=== PATIENT | male | born 1985 | race Caucasian/White ===

== ENCOUNTER 2025-01-16 19:08 | Emergency (ER) | payer BC, SELFPAY ==
[2025-01-16] VITALS (32 sets, daily range): BP systolic 110–147; BP diastolic 61–91; PULSE 60–115; RESP 16–40; TEMP 36.1–37; O2SAT 100
--- NOTE | ~2025-01-16 | CT_ITS ---
CLINICAL INDICATION: Substance overdose COMPARISON: None. TECHNIQUE: Multiple contiguous axial images of the chest, abdomen and pelvis were performed without t he administration of intravenous contrast The dose-length product (DLP) was 1196.64 mGy-cm. Automated exposure control and iterative reconstruction technique were employed. FINDINGS/OBSERVATIONS: LUNG:Bibasilar atelectasis.The lungs are otherwise clear. MEDIASTINUM:Endotracheal tube and orogastric tubes are identified.Limited evaluation without intraven ous contrast. HEART: The heart is of normal size, without pericardial effusion. SOFT TISSUES OF THE CHEST: Unremarkable. Liver: The liver demonstrates homogeneous attenuation and is not enlarged. Gallbladder and biliary system: The gallbladder is only minimally distended, and otherwise unremarkable. Pancreas: Limited evaluation of the pancreas secondary to the lack of intravenous contrast. Spleen: The spleen demonstrates homogeneous attenuation and is not enlarged. Kidneys: The bilateral kidneys are unremarkable, without hydronephrosis or renal calculi. Adrenal glands: Unremarkable. Gastrointestinal tract: Fecal stasis within the colon. Appendix: The air-filled appendix is of normal caliber (axial series, images 165 through 187). Vasculature: Unremarkable. Lymph nodes: Limited evaluation without intravenous contrast. Pelvic structures: The bladder is decompressed with a Srivastava catheter, limiting its evaluation. The prostate gland is not enlarged. Body wall and musculoskeletal: Small fat-containing umbilical hernia. No significant degenerative disease within the lower thoracic or lumbosacral spine. IMPRESSION: Unremarkable CT examination of the chest, abdomen and pelvis, as detailed above. Reviewed, dictated and finalized at location A. IMPRESSION: Unremarkable CT examination of the chest, abdomen and pelvis, as detailed above .
--- NOTE | ~2025-01-16 | XR_ITS ---
CORRECTED REPORT corrected examination description to XR chest ET placement [facility] [place]18[place]25 This report was recreated on 01/18/25. Original report was CHEST RADIOGRAPH CLINICAL HISTORY: TUBE PLACEMENT . COMPARISON: None available TECHNIQUE: Single portable view of the chest. FINDINGS Endotracheal tube is identified with its tip projecting 2.7 cm above the base of the joselo. Orogastric tube extends into the left upper quadrant, presumably within the stomach. The remainder of the cardiomediastinal silhouette is otherwise unremarkable. The lungs are clear. IMPRESSION: No focal infiltrate or effusion. Endotracheal and orogastric tubes in good position. Reviewed, dictated and finalized at location A. MTDD
--- NOTE | ~2025-01-16 | CT_ITS ---
History: Substance overdose PROCEDURE: CT head without contrast. COMPARISON: None TECHNIQUE: Axial imaging of the head performed from the skull base to the vertex without IV contrast. Sagittal a nd coronal reformations obtained. DLP: 681 mGy-cm FINDINGS: The ventricles are normal in size, shape and position. There is no mass, mass effect or midline shift. There is no abnormal extra-axial fluid collection or intracranial hemorrhage. Visualized paranasal sinuses are clear. The mastoid air cells are well aerated. No acute displaced fractures within the overlying cranium. Impression: No acute intracranial hemorrhage or suspicious mass effect. Reviewed, dictated and finalized at location A. Impression: No acute intracranial hemorrhage or suspicious mass effect.
[2025-01-16] MEDS: HALOPERIDOL LACTATE 5 MG/ML VIAL IV PUSH (19:12)
--- NOTE | 2025-01-16 19:14 | ECG_ITS ---
Test Date: 2025-01-16 23:36:09 Measurements Intervals [place] Rate: 76 P: 33 CA: 155 QRS: 43 QRSD: 91 T: 37 QT: 423 QTc: 477 Interpretive Statements SINUS RHYTHM EARLY PRECORDIAL R/S TRANSITION BORDERLINE ECG No previous ECG available for comparison Electronically Signed On 01-17-2025 05:22:11 CDT by Jm Cedeno D.O.
[2025-01-16] MEDS: LACTATED RINGERS 1,000 ML 999 ML IV CONT ×2 (19:19→21:30)
[2025-01-16] MEDS: LORazepam INJ (*CRX) 2 MG/ML VIAL IV PUSH ×3 (19:19→20:33)
--- NOTE | 2025-01-16 19:19 | ED_ITS ---
HPI - Overdose General Chief Complaint: Overdose Stated Complaint: overdose Time Seen by Provider: 01/16/25 19:13 Source: patient Mode of arrival: ambulatory Limitations: no limitations History of Present Illness HPI Narrative: 39-year-old male with no known past medical history, was found in someone's yard, agitated and restless. Police was called who in turn called EMS. EMS brought this patient -- agitated and violently thrashing around -- patient was noted to be hemodynamically stable. Patient was sedated with Haldol and Ativan. He was placed on a 4 point restraint. No other history is available. Onset (ago): hour(s) ( 1 hour) Related Data Home Medications ?Medication ?Instructions ?Recorded ?Confirmed ?Last Taken ?Type Unable to Obtain Home Medications 01/16/25 01/16/25 Unknown History Allergies Allergy/AdvReac Type Severity Reaction Status Date / Time Unable to Assess Allergy Unverified 01/16/25 20:12 Review of Systems 2 Review of Systems: All systems reviewed & are unremarkable except as noted in HPI and below Exam 2 Narrative: blood pressure 135/82. Pulse of 86. Respirations 40. Temperature 37.2?. Oxygen saturation of 100% on room air. Const: Other: Patient was agitated and thrashing around. He was shouting and yelling. HENMT: Head: normal to inspection Ears: external ears normal F laura/Nose/Sinus: Normal external nose present Face and sinus: normal facial exam Mouth: Yes Normal oral and palatal mucosa present Eyes: Conjunctivae: conjunctivae normal Pupils: Equal, round and reactive pupils present ( Pupils are dilated and reactive to light.) EOM: EOMs intact bilaterally Neck: Neck: normal visual inspection, no lymphadenopathy and no meningeal signs Chest: Chest palpation & inspection: normal inspection of the chest Resp: Effort & Inspection: normal respiratory effort Auscultation: clear to auscultation bilaterally Cardio: Rate: regular rate Rhythm: regular rhythm GI: GI Palp: Yes Soft to palpation Auscultation: normal bowel sounds O ther: No tenderness/rigidity /rebound : General: Yes no CVA tenderness Back/Spine/Pelvis: Back: no CVA tenderness Skin: General skin exam: normal color Rashes: no rashes Wounds: no wounds Neuro: General: moves all extremities and no meningeal signs Speech: normal speech Extrem: General: normal to inspection and no clubbing, cyanosis or edema Psych: Affect: Anxious affect present Other: patient was agitated. He was violently thrashing around. Course Course Emergency Course: drug overdose Pupillary dilatation with agitation suggestive of a sympathomimetic overdose. violent and combative-- patient placed on physical and chemical restraint. Patient based on physical restraint with bilateral wrist and ankle restraints. in addition the patient required chemical restraints. Patient was placed on restraint on 7:15 p.m.. The patient received Haldol 5 mg and Ativan [address] of the head did not show any acute findings. patient re-evaluated at 7:30 p.m. Patient continues to be very agitated. Received Ativan 2 mg IV again. Patient is hemodynamically stable. ABG on 3.5 liters/minute is 750/25/160/90 8%. chest x-ray does not show any infiltrates evidence of CHF. The endotracheal tube and the OG tube are in good position. patient continues to be agitated in spite of Haldol 5 mg x 2 and Ativan 2 mg x 3. Patient has been intubated and placed on mechanical ventilation for airway protection Patient is sedated with IV propofol and intermittent fentanyl. Chest x-ray and CT of the chest did not show any acute findings. Did a [id number] has assessment to validate physical and chemical restraints Patient has borderline blood pressures. Will start the patient on IV phenylephrine as the patient will be requiring more propofol for sedation. Lactate of 6.3 urine tox is positive for amphetamine and cannabinoids White count of 9.2. Elevated Lactate. CT of the abdomen and pelvis/chest did not show any acute findings. repeated a [id number] evaluation in view of his restraints. Vital Signs Vital signs: Vital Signs Temperature 37.0 C 01/16/25 19:19 Pulse Rate 86 01/16/25 19:19 Respiratory Rate 40 H 01/16/25 19:19 Blood Pressure 135/82 01/16/25 19:19 Pulse Oximetry 100 01/16/25 19:19 Oxygen Delivery Room Air 01/16/25 19:19 Temperature 36.2 C L 01/16/25 22:37 Pulse Rate 65 01/16/25 22:37 Respiratory Rate 19 01/16/25 22:37 Blood Pressure 135/80 01/16/25 22:37 Pulse Oximetry 100 01/16/25 22:37 Oxygen Delivery Mechanical Ventilation 01/16/25 23:44 Procedures Intubation Intubation #1: Intubation Date: 01/16/25 Intubation Time: 21:33 sedative: Etomidate paralytic: Succinylcholine Laryngoscope: fiber optic video scope Tube Size (cm): 7.5 Method of Intubation: orotracheal Number of Attempts: 1 Tube Secured Depth (cm): 24 Tube Secured Location: teeth Tube Placement Confirmation: visualized tube passing through cords and confirmation by capnometry ( CO2 monitor) Patient Tolerated Procedure: well Intubation Complications: none MDM - Overdose MDM Narrative Medical decision making narrative: agitation amphetamine/marijuana abuse intubated and mechanically ventilated for airway contro Differential Diagnosis Differential diagnosis: Likely poisoning by opiate or related narcotic and drug overdose Lab Data Attestation: I reviewed the patient's lab results. 01/16/25 19:43 01/16/25 19:42 Labs: Lab Results 01/16/25 01/16/25 01/16/25 Range/Units 19:23 19:42 19:43 WBC 9.2 (4.8-10.8) K/mm3 RBC 4.18 L (4.70-6.10) M/mm3 Hgb 12.6 L (14.0-18.0) g/dL Hct 38.6 L (40.0-54.0) % MCV 92.3 (78.0-102.0) fL MCH 30.1 (27.0-31.0) pg MCHC 32.6 (32-36) g/dL RDW 11.9 (11.6-14.4) % Plt Count 208 (150-420) K/mm3 MPV 10.8 (8.7-11.0) fl Immature Gran % (Auto) 0.3 H (0.0-0.0) % Neut % (Auto) 64.4 (50.0-70.0) % Lymph % (Auto) 18.7 (18.0-42.0) % [place]ill % (Auto) 13.8 H (2.0-11.0) % Eos % (Auto) 2.5 (1.0-6.0) % Baso % (Auto) 0.3 (0.0-1.0) % Lymph # (Auto) 1.72 (1.10-4.50) K/mm3 Traill # (Auto) 1.27 H (0.10-0.90) K/mm3 Eos # (Auto) 0.23 (0.02-0.50) K/mm3 Baso # (Auto) 0.03 (0.00-0.10) K/mm3 Abs Immat Gran (auto) 0.03 H (0.00-0.00) K/mm3 Absolute Neuts (auto) 5.94 (1.70-7.20) K/mm3 Absolute Nucleated RBC 0.00 (0.00-0.00) K/mm3 Nucleated RBC % 0.0 (0-0.0) % PT 11.9 (9.50-12.1) Seconds INR 1.1 APTT 28.3 (23.9-30.70) Sec Minute Volume Vent Mode Tidal Volume ml PEEP cmH2O Peak Inspir Pressure Pressure Support Sodium 142 (136-145) mmol/L Potassium 4.1 (3.5-5.1) mmol/L Chloride 105 (98-108) mmol/L Carbon Dioxide 26 (21-32) mmol/L Anion Gap 11 (4-12) mmol/L BUN 20 H (7-18) mg/dL Creatinine 1.30 (0.70-1.30) mg/dL Estim Creat Clear Calc Not Reportable Estimated GFR > 60 (59 - ) Glucose 102 H (70-99) mg/dL POC Capillary Glucose 90 (65-105) mg/dl Calculated Osmolality 296 H (285-295) mOsm/kg Lactic Acid 6.3 H (0.4-2.0) mmol/L Calcium 9.2 (8.5-10.1) mg/dL Magnesium 1.8 (1.8-2.4) mg/dL Total Bilirubin 0.5 (0.00-1.00) mg/dL AST 19 (15-37) U/L ALT 19 (16-63) U/L Alkaline Phosphatase 66 (46-116) U/L Total Creatine Kinase (39-308) U/L Troponin I 7.3 (0.00-60.4) ng/L Total Protein 7.1 (6.4-8.2) g/dL Albumin 3.5 (3.4-5.0) g/dL Triglycerides 35 (0-150) mg/dL Lipase 82 H (16-77) U/L Procalcitonin Urine Color (Yellow) Urine Appearance (Clear) Urine pH (5.0-8.0) Ur Specific [place] (1.010-1.020) Urine Protein (Negative) Urine Glucose (UA) (Negative) Urine Ketones (Negative) Ur Blood (Man) (Negative) Urine Nitrate (Negative) Urine Bilirubin (Negative) Urine Urobilinogen (0.2-1.0) mg/dL Leukocyte Esterase Rfl (Negative) JEFRY/UL Salicylates 1.6 L (2.8-20.0) mg/dL Urine Opiates Screen (Negative) Urine Methadone Screen (Negative) Acetaminophen < 2 L (10-30) ug/mL Ur Barbiturates Screen (Negative) Ur Phencyclidine Scrn (Negative) Ur Amphetamine Screen (Negative) U Benzodiazepines Scrn (Negative) Urine Cocaine Screen (Negative) U Cannabinoids Screen (Negative) Ethyl Alcohol 3 (0-6) mg/dL 01/16/25 01/16/25 01/16/25 Range/Units 19:45 19:46 22:52 WBC (4.8-10.8) K/mm3 RBC (4.70-6.10) M/mm3 Hgb (14.0-18.0) g/dL Hct (40.0-54.0) % MCV (78.0-102.0) fL MCH (27.0-31.0) pg MCHC (32-36) g/dL RDW (11.6-14.4) % Plt Count (150-420) K/mm3 MPV (8.7-11.0) fl Immature Gran % (Auto) (0.0-0.0) % Neut % (Auto) (50.0-70.0) % Lymph % (Auto) (18.0-42.0) % Traill % (Auto) (2.0-11.0) % Eos % (Auto) (1.0-6.0) % Baso % (Auto) (0.0-1.0) % Lymph # (Auto) (1.10-4.50) K/mm3 [place] # (Auto) (0.10-0.90) K/mm3 Eos # (Auto) (0.02-0.50) K/mm3 Baso # (Auto) (0.00-0.10) K/mm3 Abs Immat Gran (auto) (0.00-0.00) K/mm3 Absolute Neuts (auto) (1.70-7.20) K/mm3 Absolute Nucleated RBC (0.00-0.00) K/mm3 Nucleated RBC % (0-0.0) % PT (9.50-12.1) Seconds INR APTT (23.9-30.70) Sec Minute Volume Vent Mode Tidal Volume ml PEEP cmH2O Peak Inspir Pressure Pressure Support Sodium (136-145) mmol/L Potassium (3.5-5.1) mmol/L Chloride (98-108) mmol/L Carbon Dioxide (21-32) mmol/L Anion Gap (4-12) mmol/L BUN (7-18) mg/dL Creatinine (0.70-1.30) mg/dL Estim Creat Clear Calc Estimated GFR (59 - ) Glucose (70-99) mg/dL POC Capillary Glucose (65-105) mg/dl Calculated Osmolality (285-295) mOsm/kg Lactic Acid 1.5 (0.4-2.0) mmol/L Calcium (8.5-10.1) mg/dL Magnesium (1.8-2.4) mg/dL Total Bilirubin (0.00-1.00) mg/dL AST (15-37) U/L ALT (16-63) U/L Alkaline Phosphatase (46-116) U/L Total Creatine Kinase 586 H (39-308) U/L Troponin I (0.00-60.4) ng/L Total Protein (6.4-8.2) g/dL Albumin (3.4-5.0) g/dL Triglycerides (0-150) mg/dL Lipase (16-77) U/L Procalcitonin Pending Urine Color Yellow (Yellow) Urine Appearance Clear (Clear) Urine pH 7.0 (5.0-8.0) Ur Specific [place] 1.020 (1.010-1.020) Urine Protein Negative (Negative) Urine Glucose (UA) Negative (Negative) Urine Ketones Negative (Negative) Ur Blood (Man) Negative (Negative) Urine Nitrate Negative (Negative) Urine Bilirubin Negative (Negative) Urine Urobilinogen 0.2 (0.2-1.0) mg/dL Leukocyte Esterase Rfl Negative (Negative) JEFRY/UL Salicylates (2.8-20.0) mg/dL Urine Opiates Screen Negative (Negative) Urine Methadone Screen Negative (Negative) Acetaminophen (10-30) ug/mL Ur Barbiturates Screen Negative (Negative) Ur Phencyclidine Scrn Negative (Negative) Ur Amphetamine Screen Positive A (Negative) U Benzodiazepines Scrn Negative (Negative) Urine Cocaine Screen Negative (Negative) U Cannabinoids Screen Positive A (Negative) Ethyl Alcohol (0-6) mg/dL 01/16/25 Range/Units 23:05 WBC (4.8-10.8) K/mm3 RBC (4.70-6.10) M/mm3 Hgb (14.0-18.0) g/dL Hct (40.0-54.0) % MCV (78.0-102.0) fL MCH (27.0-31.0) pg MCHC (32-36) g/dL RDW (11.6-14.4) % Plt Count (150-420) K/mm3 MPV (8.7-11.0) fl Immature Gran % (Auto) (0.0-0.0) % Neut % (Auto) (50.0-70.0) % Lymph % (Auto) (18.0-42.0) % [place] % (Auto) (2.0-11.0) % Eos % (Auto) (1.0-6.0) % Baso % (Auto) (0.0-1.0) % Lymph # (Auto) (1.10-4.50) K/mm3 [place] # (Auto) (0.10-0.90) K/mm3 Eos # (Auto) (0.02-0.50) K/mm3 Baso # (Auto) (0.00-0.10) K/mm3 Abs Immat Gran (auto) (0.00-0.00) K/mm3 Absolute Neuts (auto) (1.70-7.20) K/mm3 Absolute Nucleated RBC (0.00-0.00) K/mm3 Nucleated RBC % (0-0.0) % PT (9.50-12.1) Seconds INR APTT (23.9-30.70) Sec Minute Volume Not Reportable Vent Mode Not Reportable Tidal Volume 500 ml PEEP 5 cmH2O Peak Inspir Pressure Not Reportable Pressure Support Not Reportable Sodium (136-145) mmol/L Potassium (3.5-5.1) mmol/L Chloride (98-108) mmol/L Carbon Dioxide (21-32) mmol/L Anion Gap (4-12) mmol/L BUN (7-18) mg/dL Creatinine (0.70-1.30) mg/dL Estim Creat Clear Calc Estimated GFR (59 - ) Glucose (70-99) mg/dL POC Capillary Glucose (65-105) mg/dl Calculated Osmolality (285-295) mOsm/kg Lactic Acid (0.4-2.0) mmol/L Calcium (8.5-10.1) mg/dL Magnesium (1.8-2.4) mg/dL Total Bilirubin (0.00-1.00) mg/dL AST (15-37) U/L ALT (16-63) U/L Alkaline Phosphatase (46-116) U/L Total Creatine Kinase (39-308) U/L Troponin I (0.00-60.4) ng/L Total Protein (6.4-8.2) g/dL Albumin (3.4-5.0) g/dL Triglycerides (0-150) mg/dL Lipase (16-77) U/L Procalcitonin Urine Color (Yellow) Urine Appearance (Clear) Urine pH (5.0-8.0) Ur Specific [place] (1.010-1.020) Urine Protein (Negative) Urine Glucose (UA) (Negative) Urine Ketones (Negative) Ur Blood (Man) (Negative) Urine Nitrate (Negative) Urine Bilirubin (Negative) Urine Urobilinogen (0.2-1.0) mg/dL Leukocyte Esterase Rfl (Negative) JEFRY/UL Salicylates (2.8-20.0) mg/dL Urine Opiates Screen (Negative) Urine Methadone Screen (Negative) Acetaminophen (10-30) ug/mL Ur Barbiturates Screen (Negative) Ur Phencyclidine Scrn (Negative) Ur Amphetamine Screen (Negative) U Benzodiazepines Scrn (Negative) Urine Cocaine Screen (Negative) U Cannabinoids Screen (Negative) Ethyl Alcohol (0-6) mg/dL ABG Data ABG results: 01/16/25 01/16/25 19:42 23:05 Puncture Site Left radial Right radial ABG pH 7.53 H 7.40 ABG pCO2 25.1 L 37.2 ABG pO2 115.8 H 236.2 H ABG HCO3 20.5 L 22.6 L ABG O2 Saturation 98.2 H 99.1 H ABG Base Excess -0.7 L -1.7 L Oxyhemoglobin 97.4 98.5 O2 Delivery Device Nasal cannula Ventilator O2 Liters/Min 3.5 0.0 Vent Rate 16 ECG Data EKG #1: ECG completion date: 01/16/25 ECG completion time: 23:36 Interpretation: normal sinus rhythm. Normal axis. No ST -T-wave changes noted. Corrected QTC is 477 Critical Care Time Critical Care Time Critical Care Time: Yes Total Critical Care Time: 70 Discharge Plan Discharge Clinical Impression: Amphetamine abuse Drug overdose Qualifiers: Encounter type: initial encounter Injury intent: undetermined intent Qualified Code(s): T50.904A - Poisoning by unspecified drugs, medicaments and biological substances, undetermined, initial encounter Respiratory failure Qualifiers: Chronicity: acute Respiratory failure complication: unspecified whether with hypoxia or hypercapnia Qualified Code(s): J96.00 - Acute respiratory failure, unspecified whether with hypoxia or hypercapnia Patient Disposition: Still a Patient Condition: Stable Instructions: Antibiotic Form Additional Instructions: patient transferred to [facility] ICU. Patient has been accepted by Dr. Donald and Liz Patient Language: Italian Prescriptions: No Action Unable to Obtain Home Medications Follow-up/Referrals: Mike Roman MD [Primary Care Provider] - Time of Disposition: 00:28
[2025-01-16 19:27] LABS: Glucose Point of Care 90 mg/dl (65-105)
--- NOTE | 2025-01-16 19:30 | PC.NURSE ---
technical producer at bedside for patient safety. RN monitoring.
--- OUTSIDE RECORDS SUMMARY | 2025-01-16 19:36 | XMS_ITS | Encounter Summary ---
Author Organization [facility] Address [address] [place] [address] Care Team Providers Care Medical Claims Specialist Name Role Phone Toño Rosario Unavailable Quinn Katz MD Primary Care Provider [phone] None, Provider Primary Care Provider Unavaila ble Encounter Details Date Type Department Care Team (Late st Contact Info) Description 03/03/2019 Abstract SFL CONVERSION [address] [place] [address] , Generic ConversionMD Social History Tobacco Use Types Packs/Day Years Used Date Smoking Tobacco: Never Assessed Sex and Gender Information Value Date Recorded Sex Assigned at Not on file 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 Gender Identity Not on file Sexual Orientation Not on file documented as of this encounter Plan of Treatment Not on file documented as of this encounter Visit Diagnoses Not on filedocumented in this encounter Additional Health Concerns Infection Onset Date Last Indicated Resolved Time COVID-19 Rule Out 10/15/2021 10/15/2021 10/15/2021 8:53 PM REAL ESTATE OFFICE MANAGER COVID-19 Confirmed 10/15/2021 10/15/2021 12:32 AM REAL ESTATE OFFICE MANAGER documented as of this encounter Care Teams Medical Claims Specialist Relationship Specialty Start Date End Date Quinn Katz MD [address] [place] [id number] PCP - General FAMILY PRACTICE 07/08/20 10/02/21 None, ProviderMD PCP - General 10/03/21 Toño Rosario PA [address] [place] [address] PHYSICIAN GRADES 1 THROUGH 5 TEACHER 07/08/20 07/08/20 documented as of this encounter
--- OUTSIDE RECORDS SUMMARY | 2025-01-16 19:36 | XMS_ITS | Clinical Summary ---
Author Organization [facility] Address [address] [place] [address] Care Team Providers Care Nursing Consultant Name Role Phone None, Provider MD Primary Care Provider Unavaila ble Allergies Active Allergy Reactions Criticality Noted Date Comments Penicillins Anaphylaxis High 07/08/2020 Medications No known medications Active Problems No known active problems Social History Tobacco Use Types Packs/Day Years Used Date Smoking Tobacco: Every Day Cigarettes Smokeless Tobacco: Never Alcohol Use Standard Drinks/Week Comments Not Currently 0 (1 standard drink = 0.6 oz pur e alcohol) once a week Sex and Gender Information Value Date Recorded Sex Assigned at Not on file 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 Gender Identity Not on file Sexual Orientation Not on file Last Filed Vital Signs Vital Sign Reading Time Taken Comments Blood Pressure 151/99 02/11/2023 9:33 PM CDT Pulse 69 02/11/2023 9:33 PM CDT Temperature 36.6 C (97.8 F) 02/11/2023 9:33 PM CDT Respiratory Rate 20 02/11/2023 9:33 PM CDT Oxygen Saturation 100% 02/11/2023 9:33 PM CDT Inhaled Oxygen Concentration - - Weight 86.2 kg (190 lb) 02/11/2023 7:43 PM CDT Height 172.7 cm (5' 8 ) 02/11/2023 7:43 PM CDT Body Mass Index 28.89 02/11/2023 7:43 PM CDT Plan of Treatment Health Maintenance Due Date Last Done Comments Annual Physical 1986 DTaP, Tdap and Td Vaccines (6 - Tdap) 1994 06/09/1988, 11/28/1984, 01/17/1984, Additional history exists Hepatitis C 2001 Hepatitis B Vaccines (1 of 3 - 19+ 3-dose series) 2002 Pneumococcal Vaccine: Pediatrics (0 to 5 Years) and At-Risk Patients (6 to 49 Years) (1 of 2 - PCV) 2002 COVID-19 Vaccine ( - 2023- season) 2024 HPV Vaccines Aged Out No longer eligi ble based on patient's age to complete this topic Meningococcal B Vaccine Aged Out No l onger eligible based on patient's age to complete this topic Meningococcal Vaccine Aged Out No titus alpesh eligible based on patient's age to complete this topic RSV Immunizations Under 20 Months Aged Out No longer eligible based on patient's age to complete this topic Insurance Care Teams Nursing Consultant Relationship Specialty Start Date End Date None, Provider, PCP - General 10/03/21
[2025-01-16 19:44] LABS: Base Excess ABG -0.7 mmol/L (0-2); HCO3 ABG 20.5 mmol/L (23-29); Modified Allen's Test Pass; Oxygen Saturation ABG 98.2 % (95-97); Oxyhemoglobin 97.4 % (94-100); PCO2 ABG 25.1 mmHg (35-45); PO2 ABG 115.8 mmHg (80-90); Site Drawn LEFT RADIAL; pH ABG 7.53 (7.35-7.45)
[2025-01-16 19:45] LABS: Device NASAL CANNULA; Liters per Minute 3.5 LPM
[2025-01-16 19:45] LABS: Basophils Absolute Auto 0.03 K/mm3 (0.00-0.10); Basophils Percent Auto 0.3 % (0.0-1.0); Eosinophils Absolute Auto 0.23 K/mm3 (0.02-0.50); Eosinophils Percent Auto 2.5 % (1.0-6.0); Hematocrit 38.6 % (40.0-54.0); Hemoglobin 12.6 g/dL (14.0-18.0); Immature Granulocyte Absolute 0.03 K/mm3 (0.00-0.00); Immature Granulocyte Percent A 0.3 % (0.0-0.0); Lymphocytes Absolute Auto 1.72 K/mm3 (1.10-4.50); Lymphocytes Percent Auto 18.7 % (18.0-42.0); Mean Corpuscular HGB Conc 32.6 g/dL (32-36); Mean Corpuscular Hemoglobin 30.1 pg (27.0-31.0); Mean Corpuscular Volume 92.3 fL (78.0-102.0); Mean Platelet Volume 10.8 fl (8.7-11.0); Monocytes Absolute Auto 1.27 K/mm3 (0.10-0.90); Monocytes Percent Auto 13.8 % (2.0-11.0); Neutrophils Absolute Auto 5.94 K/mm3 (1.70-7.20); Neutrophils Percent Auto 64.4 % (50.0-70.0); Platelet Count Result 208 K/mm3 (150-420); Red Blood Count 4.18 M/mm3 (4.70-6.10); Red Cell Distribution Width 11.9 % (11.6-14.4); White Blood Count 9.2 K/mm3 (4.8-10.8)
[2025-01-16 19:51] LABS: Add Urine Microscopic? NO; Appearance Urine Clear (Clear); Bilirubin Urine Negative (Negative); Blood Urine Negative (Negative); Color Urine Yellow (Yellow); Glucose Urine UA Negative (Negative); Ketones Urine Negative (Negative); Leukocyte Esterase Ur Negative LEU/UL (Negative); Nitrate Urine Negative (Negative); Protein Urine Negative (Negative); Urobilinogen Urine 0.2 mg/dL (0.2-1.0)
[2025-01-16 19:57] LABS: Amphetamine Screen Urine Positive (Negative); Barbiturate Screen Urine Negative (Negative); Benzodiazepines Screen Urine Negative (Negative); Cannabinoid Screen Urine Positive (Negative); Cocaine Screen Urine Negative (Negative); Methadone Screen Urine Negative (Negative); Opiate Screen Urine Negative (Negative); Phencyclidine Screen Urine Negative (Negative)
[2025-01-16 19:59] LABS: INR 1.1; Partial Thromboplastin Time 28.3 Sec (23.9-30.70); Prothrombin Time 11.9 Seconds (9.50-12.1)
[2025-01-16 20:03] LABS: Lactic Acid Reflex 6.3 mmol/L (0.4-2.0)
[2025-01-16 20:07] LABS: Alanine Aminotransferase 19 U/L (16-63); Albumin Level 3.5 g/dL (3.4-5.0); Alkaline Phosphatase 66 U/L (46-116); Anion Gap 11 mmol/L (4-12); Aspartate Amino Transferase 19 U/L (15-37); Bilirubin,Total 0.5 mg/dL (0.00-1.00); Blood Urea Nitrogen 20 mg/dL (7-18); Calcium 9.2 mg/dL (8.5-10.1); Carbon Dioxide 26 mmol/L (21-32); Chloride 105 mmol/L (98-108); Estimated Glomerular Filt Rate > 60; Glucose 102 mg/dL (70-99); Osmolality Calculated 296 mOsm/kg (285-295); Potassium 4.1 mmol/L (3.5-5.1); Sodium 142 mmol/L (136-145); Total Protein 7.1 g/dL (6.4-8.2)
[2025-01-16 20:08] LABS: Acetaminophen < 2 ug/mL (10-30); Ethanol 3 mg/dL (0-6); Lipase 82 U/L (16-77); Magnesium 1.8 mg/dL (1.8-2.4); Salicylate 1.6 mg/dL (2.8-20.0); Troponin I 7.3 ng/L (0.00-60.4)
[2025-01-16] MEDS: ETOMIDATE 20 MG/10 ML AMPUL IV PUSH (21:09)
[2025-01-16] MEDS: SUCCINYLCHOLINE CHLORIDE 20 MG/ML 10 ML VIAL 100 MG IV PUSH (21:09)
[2025-01-16 21:15] LABS: Triglycerides 35 mg/dL (0-150)
[2025-01-16] MEDS: PROPOFOL IV EMULSION 100 ML 2.42 MG IV CONT (21:15)
--- NOTE | 2025-01-16 21:15 | PC.NURSE ---
2115 patient intubated and restraint changed from violent to non-violent as patient is at high risk of pulling at tubes/lines/drains.
[2025-01-16] MEDS: fentaNYL CITRATE INJ (*CRX) 100 MCG/2 ML VIAL IV PUSH ×2 (21:25→22:25)
--- NOTE | 2025-01-16 21:25 | PC.NURSE ---
Dr. Ambriz inserted 18 Fr sump OG tube. verification of placement via CXR post intubation.
[2025-01-16 21:42] LABS: Reflex Lactic Acid Yes or No Add Lactic
[2025-01-16] MEDS: PHENYLEPHRINE HCL INJ 50 MG in DEXTROSE 5% IN WATER 250 ML/245 ML BAG 12 ML IV CONT (21:55)
[2025-01-16] MEDS: fentaNYL CITRATE INJ (*CRX) 100 MCG/2 ML VIAL 50 MCG IV PUSH (22:58)
[2025-01-16] MEDS: MIDAZOLAM HCL (*CRX) 2 MG/2 ML VIAL IV PUSH (22:58)
[2025-01-16] MEDS: ROCURONIUM BROMIDE 50 MG/5 ML VIAL IV PUSH (23:00)
[2025-01-16 23:08] LABS: Base Excess ABG -1.7 mmol/L (0-2); Device VENTILATOR; HCO3 ABG 22.6 mmol/L (23-29); Modified Allen's Test Pass; Oxygen Saturation ABG 99.1 % (95-97); Oxyhemoglobin 98.5 % (94-100); PCO2 ABG 37.2 mmHg (35-45); PO2 ABG 236.2 mmHg (80-90); Site Drawn RIGHT RADIAL
[2025-01-16 23:09] LABS: Arterial Blood Gas PEEP 5 cmH2O; Arterial Blood Gas Tidal Volume 500 ml; Arterial Blood Gas Ventilator rate 16 /MIN
[2025-01-16 23:11] LABS: Creatine Kinase 586 U/L (39-308)
[2025-01-16 23:15] LABS: Lactic Acid 1.5 mmol/L (0.4-2.0)
--- NOTE | 2025-01-16 23:29 | PC.NURSE ---
patient returned from imaging.
[2025-01-17] VITALS (26 sets, daily range): BP systolic 109–148; BP diastolic 63–92; PULSE 44–83; RESP 16–20; TEMP 35.9–36.2; O2SAT 100
[2025-01-17] MEDS: Please add drug allergy info to patient profile. 1 EACH XX (00:02)
[2025-01-17 00:42] LABS: Glucose Point of Care 92 mg/dl (65-105)
[2025-01-17] MEDS: SODIUM CHLORIDE 0.9% IV 1,000 ML 999 ML IV CONT (01:08)
[2025-01-17] MEDS: DOPamine 400 MG/D5W 250 ML 400 MG/250 ML BAG 7.57 MG IV CONT (01:16)
[2025-01-17] MEDS: PROPOFOL IV EMULSION 100 ML 19.37 MG IV CONT (02:15)
[2025-01-17 11:59] LABS: Procalcitonin 0.1 ng/mL
== END 2025-01-17 02:15 ==
PROVIDERS: Emergency Provider Internal Medicine Critical Care Medicine; PCP Internal Medicine
DX: F15.10 Other stimulant abuse, uncomplicated (principal); T50.904A Poisoning by unspecified drugs, medicaments and biological substances, undetermined, initial encounter; J96.00 Acute respiratory failure, unspecified whether with hypoxia or hypercapnia
CPT/HCPCS: 36415; 36600; 70450; 71045; 71250; 74176; 80053; 80143; 80179; 80307; 81003; 82077; 82550; 82805; 82948; 83605; 83690; 83735; 84145; 84478; 84484; 85025; 85610; 85730; 93005; 96361; 96365; 96366; 96367; 96375; 96376; 99285; J0330; J1265; J1630; J2060; J2250; J2371; J2704; J3010; J7030; J7060; J7120

== ENCOUNTER 2025-01-17 03:57 | Inpatient (IN) | payer BC, SELFPAY ==
[2025-01-17] VITALS (42 sets, daily range): BP systolic 104–145; BP diastolic 58–82; PULSE 67–110; RESP 12–19; TEMP 34.9–38.8; O2SAT 93–99; BMI 26.9
--- NOTE | ~2025-01-17 | XR_ITS ---
EXAMINATION: XR chest 1V portable DATE: 01/19/2025 05:25 INDICATION: Respiratory failure TECHNIQUE: frontal view of the chest was obtained. COMPARISON: Chest radiograph dated 01/18/2025 FINDINGS: Opacities in the bilateral lower lung zones which could represent atelectasis or pneumonia. No pulmon aaliyah edema, pleural effusion or pneumothorax. The cardiomediastinal silhouette is normal. IMPRESSION: 1. Opacities in the bilateral lower lung zones which could represent atelectasis or pneumonia. Reviewed, dictated and finalized at location A. IMPRESSION: 1. Opacities in the bilateral lower lung zones which could represent atelectasi s or pneumonia.
--- NOTE | ~2025-01-17 | XR_ITS ---
Portable chest x-ray Comparison: 01/16/2025 Clinical History: Intubation Findings: Endotracheal tube and NG tube are in satisfactory positions. Lungs are clear. Cardiomedia stinal silhouette is stable. Bones and soft tissues are unremarkable. Impression: Clear lungs. Support tubes, as above. Reviewed, dictated and finalized at location . Impression: Clear lungs. Support tubes, as above.
--- NOTE | ~2025-01-17 | XR_ITS ---
Portable chest x-ray Comparison: 01/17/2025 Clinical History: Intubation Findings: Endotracheal tube and NG tube are in satisfactory positions. There is mild central congest theodore change with possible minimal bibasilar pulmonary edema. Cardiomediastinal silhouette is stable. Bones and soft tissues are unremarkable. Impression: Mild central congestive change with possible minimal bibasilar pulmonary edema. Support tubes, as above. Reviewed, dictated and finalized at location . Impression: Mild central congestive change with possible minimal bibasilar pulmonary edema. Support tubes, as above.
[2025-01-17] MEDS: PROPOFOL IV EMULSION 100 ML 19.85 MG IV CONT (02:55)
--- OUTSIDE RECORDS SUMMARY | 2025-01-17 03:16 | XMS_ITS | Encounter Summary ---
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 Gender Identity Not on file Sexual Orientation Not on file documented as of this encounter Plan of Treatment Not on file documented as of this encounter Visit Diagnoses Not on filedocumented in this encounter Additional Health Concerns Infection Onset Date Last Indicated Resolved Time COVID-19 Rule Out 10/15/2021 10/15/2021 10/15/2021 8:53 PM CERAMIC MOLD DESIGNER COVID-19 Confirmed 10/15/2021 10/15/2021 12:32 AM CERAMIC MOLD DESIGNER documented as of this encounter Care Teams Sampler Pickup Relationship Specialty Start Date End Date Quinn Katz MD [address] [place] [id number] PCP - General FAMILY PRACTICE 07/08/20 10/02/21 None, ProviderMD PCP - General 10/03/21 Toño Rosario PA [address] [place] [address] PHYSICIAN PERSONAL COMPUTER SPECIALIST 07/08/20 07/08/20 documented as of this encounter
--- OUTSIDE RECORDS SUMMARY | 2025-01-17 03:16 | XMS_ITS | Clinical Summary ---
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
--- NOTE | 2025-01-17 03:41 | PCRCNOTE ---
0300: Patient arrived to ICU-3 intubated with 7.5 ETT at 25 to teeth; sedated and ventilated; switched over to Kaplan C2, CMV, RR16, Vt500, +5, FiO2 titrated to 25% for SpO2:97%, vent limits/alarms set; ETAD replaced to reposition; ETT cuff occluded with 3 mL; advised patient was combative, soft restraints in place at this time.
--- OUTSIDE RECORDS SUMMARY | 2025-01-17 04:01 | XMS_ITS | Clinical Summary ---
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
--- OUTSIDE RECORDS SUMMARY | 2025-01-17 04:01 | XMS_ITS | Encounter Summary ---
Author Organization [facility] Address [address] [place] [address] Care Team Providers Care School Photographer Name Role Phone Toño Rosario Unavailable Quinn Katz MD Primary Care Provider [phone] None, Provider Primary Care Provider Unavaila ble Encounter Details Date Type Department Care Team (Late st Contact Info) Description 03/03/2019 Abstract SFL CONVERSION [address] [place] [address] , Generic ConversionMD Social History Tobacco Use Types Packs/Day Years Used Date Smoking Tobacco: Never Assessed Sex and Gender Information Value Date Recorded Sex Assigned at Not on file 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 Gender Identity Not on file Sexual Orientation Not on file documented as of this encounter Plan of Treatment Not on file documented as of this encounter Visit Diagnoses Not on filedocumented in this encounter Additional Health Concerns Infection Onset Date Last Indicated Resolved Time COVID-19 Rule Out 10/15/2021 10/15/2021 10/15/2021 8:53 PM DAY CARE HOME MOTHER COVID-19 Confirmed 10/15/2021 10/15/2021 12:32 AM DAY CARE HOME MOTHER documented as of this encounter Care Teams School Photographer Relationship Specialty Start Date End Date Quinn Katz MD [address] [place] [id number] PCP - General FAMILY PRACTICE 07/08/20 10/02/21 None, ProviderMD PCP - General 10/03/21 Toño Rosario PA [address] [place] [address] PHYSICIAN PAINT MIXER 07/08/20 07/08/20 documented as of this encounter
--- NOTE | 2025-01-17 04:16 | ADMGEN ---
This patient, Mihai Clifford, was admitted to Intensive Care Unit-3 on 01/17/25 at 0237. Patient/family oriented to hospital policies and general routines including ID bracelet, bed and alarms, visiting hours, pain management, procedures, bathroom and other care routines, personal items, smoking policy, room service/diet, and visiting hours. Information on how to activate the Rapid Response Team has been discussed. Patient/Family are encouraged to report perceived risks to care and to ask questions if they do not understand what they are told or what they should do.
[2025-01-17 04:58] LABS: Basophils Percent Auto 0.3 % (0.2-1.2); Eosinophils Absolute Auto 0.1 K/mm3 (0-0.3); Eosinophils Percent Auto 0.8 % (0-4.4); Hematocrit 37.6 % (42.0-52.0); Hemoglobin 12.5 g/dL (14.0-18.0); Immature Granulocyte Absolute 0.04 K/mm3 (0.00-0.031); Immature Granulocyte Percent A 0.4 % (0-0.5); Lymphocytes Absolute Auto 1.34 K/mm3 (0.9-3.2); Lymphocytes Percent Auto 14.1 % (18.3-44.2); Mean Corpuscular HGB Conc 33.2 g/dl (32-36); Mean Corpuscular Hemoglobin 30.5 pg (26-34); Mean Corpuscular Volume 91.7 fl (80-100); Mean Platelet Volume 11.2 fl (7.4-10.4); Monocytes Absolute Auto 1.3 K/mm3 (0.1-0.6); Monocytes Percent Auto 13.5 % (2.6-8.5); Neutrophils Absolute Auto 6.7 K/mm3 (1.3-6.7); Neutrophils Percent Auto 70.9 % (45.5-73.1); Platelet Count Result 175 k/mm3 (150-375); White Blood Count 9.5 K/mm3 (4.5-10.0)
--- NOTE | 2025-01-17 05:07 | P.HP_ITS ---
H&P: HPI History of Present Illness Date/Time: 01/17/25 05:07 Chief Complaint: Agitation Narrative: This is a 39-year-old male with unknown past medical history who was found on 01/16/2025 in someone's yd agitated and restless. EMS transferred the patient to [facility], patient was agitated and violently thrashing per report. Initially he was hemodynamically stable. He was given Haldol and Ativan and placed in 4 point restraints. He then received an additional dose of Ativan and for airway protection was then intubated and placed on mechanical ventilation. Fentanyl and propofol were started. Chest x-ray CT head and chest abdomen pelvis did not demonstrate any acute abnormalities. Lactic acid 6.3 and after large volume fluid resuscitation cleared. U tox positive for amphetamines and cannabinoids, reported to have dilated pupils. Shortly before transfer to [facility] ICU the patient became hypotensive and placed phenylephrine, then developed bradycardia with heart rate in 40s and was placed on dopamine. Review of Systems Review of Systems: ROS unobtainable: Yes unobtainable due to endotracheal tube, unobtainable due to medical condition and unobtainable due to mental status [facility] Social History Social History Substance use type: marijuana and amphetamines Meds Home Medications and Allergies Home Medications ?Medication ?Instructions ?Recorded ?Confirmed ?Type Unable to Obtain Home Medications 01/16/25 01/16/25 History Allergies Allergy/AdvReac Type Severity Reaction Status Date / Time Unable to Assess Allergy Unverified 01/16/25 20:12 Vital Signs Vital Signs - 24 hr 01/17/25 03:00 01/17/25 04:41 Pulse Rate 110 H 79 Pulse Oximetry 99 96 Oxygen Delivery Mechanical Ventilation Mechanical Ventilation Fraction of Inspired Oxygen 35 25 Exam Const: Other: Sedated HENMT: Mouth: Yes moist mucous membranes Eyes: Pupils: Equal, round and reactive pupils present Other: Pupils 3 mm equally Neck: Neck: supple Resp: Other: Mechanical breath sounds Cardio: Rate: regular rate Rhythm: regular rhythm GI: GI Palp: Yes Soft to palpation and No Tenderness to palpation present (GI) Extrem: General: no edema H&P: Results Labs Labs: Short CBC 01/17/25 Range/Units 04:28 WBC 9.5 (4.5-10.0) K/mm3 Hgb 12.5 L (14.0-18.0) g/dL Hct 37.6 L (42.0-52.0) % Plt Count 175 (150-375) k/mm3 Assessment and Plan Assessment and plan (1) Amphetamine abuse: Code(s): F15.10 - Other stimulant abuse, uncomplicated Status: Acute (2) Respiratory failure: Qualifiers: Chronicity: acute Respiratory failure complication: unspecified whether with hypoxia or hypercapnia Qualified Code(s): J96.00 - Acute respiratory failure, unspecified whether with hypoxia or hypercapnia Code(s): J96.90 - Respiratory failure, unspecified, unspecified whether with hypoxia or hypercapnia Status: Acute (3) Drug overdose: Qualifiers: Encounter type: initial encounter Injury intent: undetermined intent Qualified Code(s): T50.904A - Poisoning by unspecified drugs, medicaments and biological substances, undetermined, initial encounter Code(s): T50.901A - Poisoning by unspecified drugs, medicaments and biological substances, accidental (unintentional), initial encounter Status: Acute Plan This is a 39-year-old male with unknown past medical history who was found on 01/16/2025 in someone's yd agitated and restless. EMS transferred the patient to [facility], patient was agitated and violently thrashing per report. Initially he was hemodynamically stable. He was given Haldol and Ativan and placed in 4 point restraints. He then received an additional dose of Ativan and for airway protection was then intubated and placed on mechanical ventilation. Fentanyl and propofol were started. Chest x-ray CT head and chest abdomen pelvis did not demonstrate any acute abnormalities. Lactic acid 6.3 and after large volume fluid resuscitation cleared. U tox positive for amphetamines and cannabinoids, reported to have dilated pupils. Shortly before transfer to [facility] ICU the patient became hypotensive and placed phenylephrine, then developed bradycardia with heart rate in 40s and was placed on dopamine. ----- Initial blood work revealed hemoglobin 12.6, BUN 20, serum creatinine 1.30, acid 6.3 coming down to 1.5, serum glucose 106, total CK 586, lipase 82, ABG with a pH is 7.53 improving to 7.54 status post intubation. ----- Printing Manager consulted. Continue normal saline at 100 cc/hour. Care coordination consult placed. Patient remains intubated and sedated. Dopamine GTT discontinued. Currently in sinus rhythm and hemodynamically stable. ----- Full code. SCDs. Pepcid 20 mg IV b.i.d. Hospitalist [facility] Advance Care Plan I have confirmed that the patient's Advanced Care Plan is present, code status is documented, or surrogate decision maker is listed in patient medical record.: Yes Medication Reconciliation I have utilized all available resources to obtain, update and review the patients current medications (includes all prescriptions, OTC, herbals, cannabis, and nutritional supplements).: No The patient is not eligible for med reconciliation; the patient is in a emergent medical situation where delaying treatment would jeopardize the patients healt h.: Yes
[2025-01-17 05:15] LABS: Alanine Aminotransferase 26 U/L (6-50); Albumin Level 3.6 g/dL (3.5-5.1); Alkaline Phosphatase 51 U/L (38-126); Anion Gap 11 mmol/L (4-12); Aspartate Amino Transferase 52 U/L (17-59); Blood Urea Nitrogen 16 mg/dL (9-20); Carbon Dioxide 19 mmol/L (22-30); Chloride 107 mmol/L (98-107); Estimated CRCL calculation 123 ml/min; Estimated Glomerular Filt Rate > 60; Glucose 89 mg/dL (65-110); Magnesium 1.8 mg/dL (1.6-2.3); Phosphorus 2.4 mg/dL (2.5-4.5); Potassium 3.4 mmol/L (3.4-5.0); Sodium 137 mmol/L (137-145)
[2025-01-17 05:18] LABS: Triglycerides 53 mg/dL (<150)
[2025-01-17 05:27] LABS: Base Excess ABG -2.6 mEq/l (+/-2.0); Carboxyhemoglobin 0.2 % THb (0-2.0); Fractional Inspired Oxygen 25 %; HCO3 ABG 23.2 mEq/l (22.0-26.0); Methemoglobin ABG 0.1 %THb (0-1.5); Oxygen Content ABG 16.6 %vol (16.0-22.0); Oxygen Saturation ABG 97.5 % (95.0-100.0); PCO2 ABG 43.9 mmHg (35.0-45.0); PO2 ABG 104.1 mmHg (80.0-100.0); PO2 FiO2 Ratio Arterial Blood 4.16 %; Reduced Hemoglobin 2.7 %THb (0-5.0); Total Hemoglobin 12.1 g/dL (12.0-18.0)
[2025-01-17 05:29] LABS: Modified Allen's Test Pass; Site Drawn LEFT RADIAL
[2025-01-17 05:30] LABS: Arterial Blood Gas PEEP 5 cmH2O; Arterial Blood Gas Tidal Volume 450 ml; Arterial Blood Gas Vent Mode CMV; Arterial Blood Gas Ventilator rate 16 /MIN; Device VENTILATOR
[2025-01-17] MEDS: MIDAZOLAM 100MG/NS 100ML(*CRX) 100 MG/100 ML BAG IV CONT (05:33)
[2025-01-17] MEDS: SODIUM CHLORIDE 0.9% IV 1,000 ML 100 ML IV CONT (05:35)
[2025-01-17 06:37] LABS: Glucose Point of Care 79 mg/dl (65-105)
[2025-01-17] MEDS: PROPOFOL IV EMULSION 100 ML 14.89 MG IV CONT ×3 (07:06→20:40)
[2025-01-17 07:51] LABS: MRSA (PCR) NOT DETECTED (NOT DETECTE)
[2025-01-17] MEDS: MAGNESIUM SULF 1 GM/D5W 100 ML 1 GM/100 ML BAG IVPB (08:07)
[2025-01-17] MEDS: LACTATED RINGERS 1,000 ML 100 ML IV CONT ×2 (08:08→18:15)
[2025-01-17] MEDS: POTASSIUM/PHOSPHORUS/SODIUM 1.5 GM PACKET 1 PACKET FEED TUBE (08:08)
[2025-01-17] MEDS: MINERAL OIL/WHITE PETROLATUM OINTMENT 1 APPLIC EACH EYE ×2 (08:09→20:43)
[2025-01-17] MEDS: FAMOTIDINE 20 MG/2 ML VIAL IV PUSH ×2 (08:09→20:43)
[2025-01-17] MEDS: ENOXAPARIN 40 MG/0.4 ML SYRINGE SUB-Q (08:09)
--- NOTE | 2025-01-17 09:02 | P.CONIN_ITS ---
Assessment and Plan Assessment and plan (1) Acute respiratory failure: Code(s): J96.00 - Acute respiratory failure, unspecified whether with hypoxia or hypercapnia Status: Acute Assessment and Plan: Secondary to methamphetamine toxicity Chest x-ray and CT scan does not show any pneumonia ABG reviewed Ventilator adjusted to tidal volume 450 and rate of 18 Weaning will depend on mental status improvement (2) Drug overdose: Qualifiers: Encounter type: initial encounter Injury intent: undetermined intent Q ualified Code(s): T50.904A - Poisoning by unspecified drugs, medicaments and biological substances, undetermined, initial encounter Code(s): T50.901A - Poisoning by unspecified drugs, medicaments and biological substances, accidental (unintentional), initial encounter Status: Acute Assessment and Plan: UDS positive for amphetamine and cannabinoids. Head CT negative. Will allow 24 hours to drugs to wear off Will do sedation holiday (3) Amphetamine abuse: Code(s): F15.10 - Other stimulant abuse, uncomplicated Status: Acute Assessment and Plan: Currently sedated with propofol and Versed (4) Rhabdomyolysis: Code(s): M62.82 - Rhabdomyolysis Status: Acute Assessment and Plan: Continue IV fluids. Monitor CK level (5) Lactic acidosis: Code(s): E87.20 - Acidosis, unspecified Status: Acute Assessment and Plan: No evidence of sepsis at this time. Not on any antibiotics Lactic acidosis has resolved with fluids Monitor (6) Sinus bradycardia: Code(s): R00.1 - Bradycardia, unspecified Status: Acute Assessment and Plan: Likely secondary to propofol. Off dopamine. Now has resolved. Monitor (7) Electrolyte abnormality: Code(s): E87.8 - Other disorders of electrolyte and fluid balance, not elsewhere classified Status: Acute Assessment and Plan: Replace low potassium magnesium and phosphate Plan DVT prophylaxis -Lovenox Stress ulcer prophylaxis -Pepcid Nutrition -start Tube Feeds Code Status - Full Code Total Critical Care Time - 35 minutes Due to a high probability of clinically significant, life threatening deterioration, the patient required my highest level of preparedness to intervene emergently and I personally spent this critical care time directly and personally managing the patient. This critical care time included obtaining a history; examining the patient; pulse oximetry; ordering and review of studies; arranging urgent treatment with development of a management plan; evaluation of patient's response to treatment; frequent reassessment; and discussions with other providers. It was exclusive of separately billable procedures and treating other patients and teaching time. Please see Assessment and Plan section and the rest of the note for further information on patient assessment and treatment Supervisor Clam Bed Consult Note Consult date: 01/17/25 Reason for consult: Acute respiratory failure HPI: Mihai Clifford is a 39 year old white male with unknown past medical history who was found on 01/16/2025 in someone's yard agitated and restless. EMS transferred the patient to [facility] ER, patient was agitated and violently thrashing per report. Initially he was hemodynamically stable. He was given Haldol and Ativan and placed in 4 point restraints. He then received an additional dose of Ativan. He was then sedated and for airway protection was then intubated and placed on mechanical ventilation. Patient was started on propofol infusion and given IV fentanyl push. Patient was then given Versed. Workup in the ER showed normal WBC at 9.5. Electrolytes are normal except lactic acid of 6.3 Chest x-ray CT head and chest abdomen pelvis did not demonstrate any acute abnormalities. Patient was given IV fluid U tox positive for amphetamines and cannabinoids, reported to have dilated pupils at the time of presentation. Patient was then transferred to [facility] ICU. Patient was started on dopamine infusion due to bradycardia for likely from propofol. This morning when I evaluated the patient he is currently on propofol at 30 mics and Versed. He hemodynamically stable with sinus rhythm in 80s. He is on 25% FiO2. He is sedated and unable to provide any other meaningful history. No family at bedside. Review of Systems 2 Review of Systems: ROS unobtainable: Yes unobtainable due to endotracheal tube, unobtainable due to medical condition and unobtainable due to mental status [facility] Past Medical History Medical History (Updated 01/17/25 @ 09:07 by Sunil Donald MD) Drug abuse Social History Social History Substance use type: marijuana and amphetamines Comments Past family's surgical and medical history not obtainable Meds Home Medications and Allergies Home Medications ?Medication ?Instructions ?Recorded ?Confirmed ?Type Unable to Obtain Home Medications 01/16/25 01/16/25 History Allergies Allergy/AdvReac Type Severity Reaction Status Date / Time Unable to Assess Allergy Unverified 01/16/25 20:12 Vital Signs Vital Signs - 24 hr 01/17/25 02:55 01/17/25 03:00 01/17/25 03:02 Temperature Pulse Rate 80 110 H 67 Respiratory Rate 16 Blood Pressure Pulse Oximetry 99 Oxygen Delivery Mechanical Ventilation Fraction of Inspired Oxygen 35 01/17/25 04:41 01/17/25 05:33 01/17/25 05:50 Temperature Pulse Rate 79 84 Respiratory Rate 13 Blood Pressure Pulse Oximetry 96 Oxygen Delivery Mechanical Ventilation Mechanical Ventilation Fraction of Inspired Oxygen 25 25 01/17/25 06:00 01/17/25 07:06 01/17/25 07:06 Temperature Pulse Rate 72 84 84 Respiratory Rate 12 12 Blood Pressure Pulse Oximetry Oxygen Delivery Fraction of Inspired Oxygen 01/17/25 08:00 01/17/25 08:05 Temperature 36.8 C Pulse Rate 83 84 Respiratory Rate 13 Blood Pressure 104/64 Pulse Oximetry 96 96 Oxygen Delivery Mechanical Ventilation Fraction of Inspired Oxygen 25 Exam 2 Narrative: General: Pt is sedated, intubated and on mechanical ventilation Lungs/Chest: Trachea central Coarse BS B/L, No crackles or wheezing. Cardiac: RRR. Normal S1 S2. No murmurs Circulation: Pedal pulses are intact and symmetrical. Abdomen: Decreased bowel sounds. Obese. Soft. NT. ND. Extremities: No clubbing, cyanosis or edema. Warm : Srivastava in place Neurologic: Unable to assess due to sedation. PERRL Results Labs 01/17/25 04:28 01/17/25 04:28 Labs: Impressions Chest X-Ray 01/17/25 06:40 Impression: Clear lungs. Support tubes, as above. Short CBC 01/17/25 Range/Units 04:28 WBC 9.5 (4.5-10.0) K/mm3 Hgb 12.5 L (14.0-18.0) g/dL Hct 37.6 L (42.0-52.0) % Plt Count 175 (150-375) k/mm3 BMP 01/17/25 04:28 Sodium 137 Potassium 3.4 Chloride 107 Carbon Dioxide 19 L BUN 16 Creatinine 0.68 L Glucose 89 Calcium 8.0 L Liver Function 01/17/25 Range/Units 04:28 Total Bilirubin 1.0 (0.2-1.3) mg/dL AST 52 (17-59) U/L ALT 26 (6-50) U/L Alkaline Phosphatase 51 (38-126) U/L Albumin 3.6 (3.5-5.1) g/dL
--- NOTE | 2025-01-17 09:19 | PC.NURSE ---
[address] Donald - Dopamine drip discontinued. 0300 Patient arrived with Dopamine 2.5mcg/min infusing. Continued drip.
[2025-01-17] MEDS: MIDAZOLAM HCL (*CRX) 2 MG/2 ML VIAL 4 MG IV PUSH (10:48)
[2025-01-17 11:41] LABS: Glucose Point of Care 80 mg/dl (65-105)
--- NOTE | 2025-01-17 12:27 | PC.NURSE ---
At approximately 1000am, sedation turned down per MD orders. At approximately 1030am ventilator noted to be alarming. This RN walked into the room and noted the patient trying to sit up in bed, lifting arms (while in restraints) towards face. This RN tried to reorient patient and called for assistance as the patient became increasingly more combative when arms were held to side position. Patient sitting straight up in bed and unable to follow any directions. MD called to the bedside to assess the situation. Orders received to increase sedation at this time. Patient continued to fight and further orders received to give more sedation IVP (see eMAR). Medications given as ordered.
--- NOTE | 2025-01-17 13:19 | PC.NURSE ---
Updated patient's father over the phone on patient current status and plan of care while in the ICU. Patient's father states that his son has been using drugs for the past 5-6 years . States that he is big into meth and has used heroine as well, although meth is his drug of choice it seems . Furthermore states because of his lifestyle his relationship with the family is strained . This RN verbalized understanding.
[2025-01-17] MEDS: ACETAMINOPHEN ELIXIR 325 MG/10.15 ML UDC 650 MG PO (21:45)
[2025-01-18] VITALS (35 sets, daily range): BP systolic 101–154; BP diastolic 59–102; PULSE 76–103; RESP 12–23; TEMP 37.3–38.5; O2SAT 92–98
[2025-01-18 00:59] LABS: Glucose Point of Care 80 mg/dl (65-105)
[2025-01-18] MEDS: PROPOFOL IV EMULSION 100 ML 17.37 MG IV CONT (01:33)
[2025-01-18] MEDS: ACETAMINOPHEN ELIXIR 325 MG/10.15 ML UDC 650 MG PO ×3 (01:45→16:16)
[2025-01-18 04:14] LABS: Hematocrit 36.4 % (42.0-52.0); Hemoglobin 12.4 g/dL (14.0-18.0); Mean Corpuscular HGB Conc 34.1 g/dl (32-36); Mean Corpuscular Hemoglobin 30.7 pg (26-34); Mean Corpuscular Volume 90.1 fl (80-100); Mean Platelet Volume 10.7 fl (7.4-10.4); Platelet Count Result 167 k/mm3 (150-375); Red Blood Count 4.04 M/mm3 (4.6-6.20); Red Cell Distribution Width 12.1 % (11.5-14.5); White Blood Count 14.6 K/mm3 (4.5-10.0)
[2025-01-18 04:23] LABS: Alanine Aminotransferase 30 U/L (6-50); Alkaline Phosphatase 50 U/L (38-126); Anion Gap 4 mmol/L (4-12); Aspartate Amino Transferase 57 U/L (17-59); Blood Urea Nitrogen 12 mg/dL (9-20); Calcium 7.6 mg/dL (8.4-10.2); Carbon Dioxide 25 mmol/L (22-30); Chloride 104 mmol/L (98-107); Estimated CRCL calculation 121 ml/min; Estimated Glomerular Filt Rate > 60; Glucose 115 mg/dL (65-110); Magnesium 1.9 mg/dL (1.6-2.3); Potassium 3.1 mmol/L (3.4-5.0); Sodium 133 mmol/L (137-145)
[2025-01-18] MEDS: LACTATED RINGERS 1,000 ML 100 ML IV CONT (04:30)
[2025-01-18 05:13] LABS: Alveolar/Arterial O2 Gradient 63.4 mmHg; Base Excess ABG -1.4 mEq/l (+/-2.0); Carboxyhemoglobin 0.7 % THb (0-2.0); Fractional Inspired Oxygen 25 %; HCO3 ABG 22.6 mEq/l (22.0-26.0); Methemoglobin ABG 0.1 %THb (0-1.5); Oxygen Saturation ABG 94.9 % (95.0-100.0); Oxyhemoglobin 94.2 % THb (90.0-100.0); PCO2 ABG 35.9 mmHg (35.0-45.0); PO2 ABG 72.2 mmHg (80.0-100.0); PO2 FiO2 Ratio Arterial Blood 2.89 %; Total Hemoglobin 12.8 g/dL (12.0-18.0); pH ABG 7.417 (7.350-7.450)
[2025-01-18 05:14] LABS: Arterial Blood Gas PEEP 5 cmH2O; Arterial Blood Gas Tidal Volume 450 ml; Arterial Blood Gas Vent Mode CMV; Arterial Blood Gas Ventilator rate 18 /MIN; Device VENTILATOR; Modified Allen's Test Pass; Site Drawn LEFT RADIAL
[2025-01-18] MEDS: PROPOFOL IV EMULSION 100 ML 19.85 MG IV CONT (06:26)
[2025-01-18 06:33] LABS: Glucose Point of Care 101 mg/dl (65-105)
--- NOTE | 2025-01-18 07:32 | WPDINTPN ---
Progress Note: A&P Assessment and Plan (1) Acute respiratory failure: Code(s): J96.00 - Acute respiratory failure, unspecified whether with hypoxia or hypercapnia Status: Acute Assessment and Plan: Secondary to methamphetamine toxicity Chest x-ray and CT scan does not show any pneumonia at the time of presentation ABG and chest x-ray reviewed reviewed Plan for sedation holiday and weaning trial today (2) Drug overdose: Qualifiers: Encounter type: initial encounter Injury intent: undetermined intent Qualified Code(s): T50.904A - Poisoning by unspecified drugs, medicaments and biological substances, undetermined, initial encounter Code(s): T50.901A - Poisoning by unspecified drugs, medicaments and biological substances, accidental (unintentional), initial encounter Status: Inactive Assessment and Plan: UDS positive for amphetamine and cannabinoids. Head CT negative. Currently sedated Plan for sedation holiday and weaning trial today (3) Amphetamine abuse: Code(s): F15.10 - Other stimulant abuse, uncomplicated Status: Inactive Assessment and Plan: Currently sedated with propofol and Versed (4) Rhabdomyolysis: Code(s): M62.82 - Rhabdomyolysis Status: Acute Assessment and Plan: On IV fluids. Monitor CK level (5) Lactic acidosis: Code(s): E87.20 - Acidosis, unspecified Status: Acute Assessment and Plan: No evidence of sepsis at this time. Not on any antibiotics Lactic acidosis has resolved with fluids Monitor (6) Sinus bradycardia: Code(s): R00.1 - Bradycardia, unspecified Status: Acute Assessment and Plan: Likely secondary to propofol. Off dopamine. Now has resolved. Monitor (7) Electrolyte abnormality: Code(s): E87.8 - Other disorders of electrolyte and fluid balance, not elsewhere classified Status: Acute Assessment and Plan: Replace low potassium (8) Fever: Code(s): R50.9 - Fever, unspecified Status: Acute Assessment and Plan: Febrile overnight. With increased WBC count Imaging at the time of presentation was negative and WBC was normal ? Aspiration was atelectasis Check sputum and blood culture Repeat procalcitonin level Empiric Zosyn Plan DVT prophylaxis -Lovenox Stress ulcer prophylaxis -Pepcid Nutrition -on Tube Feeds Code Status - Full Code Total Critical Care Time - 30 minutes Due to a high probability of clinically significant, life threatening deterioration, the patient required my highest level of preparedness to intervene emergently and I personally spent this critical care time directly and personally managing the patient. This critical care time included obtaining a history; examining the patient; pulse oximetry; ordering and review of studies; arranging urgent treatment with development of a management plan; evaluation of patient's response to treatment; frequent reassessment; and discussions with other providers. It was exclusive of separately billable procedures and treating other patients and teaching time. Please see Assessment and Plan section and the rest of the note for further information on patient assessment and treatment Subjective Date/time seen: 01/18/25 Overnight events reviewed. febrile overnight Continues to be on mechanical ventilation 30% FiO2 Tolerating tube feeds Continues to be sedated with propofol and Versed Other Vitals acceptable Review of Systems Review of Systems: ROS unobtainable: Yes unobtainable due to endotracheal tube, unobtainable due to medical condition and unobtainable due to mental status Exam Narrative: General: Pt is sedated, intubated and on mechanical ventilation Lungs/Chest: Trachea central Coarse BS B/L, No crackles or wheezing. Cardiac: RRR. Normal S1 S2. No murmurs Circulation: Pedal pulses are intact and symmetrical. Abdomen: Decreased bowel sounds. Obese. Soft. NT. ND. Extremities: No clubbing, cyanosis or edema. Warm : Srivastava in place Neurologic: Unable to assess due to sedation. PERRL Objective Data Vital Signs Vital Signs: Vital Signs - 24 hr 01/17/25 08:00 01/17/25 08:00 01/17/25 08:00 Temperature 36.8 C Pulse Rate 83 84 84 Respiratory Rate 13 13 Blood Pressure 104/64 Pulse Oximetry 96 96 Oxygen Delivery Mechanical Ventilation Fraction of Inspired Oxygen 01/17/25 08:00 01/17/25 08:05 01/17/25 09:00 Temperature Pulse Rate 82 84 87 Respiratory Rate 18 18 Blood Pressure Pulse Oximetry 96 Oxygen Delivery Mechanical Ventilation Fraction of Inspired Oxygen 01/17/25 09:00 01/17/25 10:00 01/17/25 10:00 Temperature 36.8 C Pulse Rate 86 86 94 Respiratory Rate 18 18 Blood Pressure 118/74 Pulse Oximetry 96 Oxygen Delivery Fraction of Inspired Oxygen 01/17/25 10:06 01/17/25 10:43 01/17/25 10:54 Temperature Pulse Rate 87 92 95 Respiratory Rate 18 18 Blood Pressure Pulse Oximetry 96 Oxygen Delivery Mechanical Ventilation Fraction of Inspired Oxygen 25 01/17/25 11:00 01/17/25 11:01 01/17/25 12:00 Temperature 36.9 C Pulse Rate 92 96 92 Respiratory Rate 18 18 18 Blood Pressure 116/72 Pulse Oximetry 96 Oxygen Delivery Fraction of Inspired Oxygen 01/17/25 12:00 01/17/25 12:00 01/17/25 12:00 Temperature Pulse Rate 94 94 Respiratory Rate 18 Blood Pressure Pulse Oximetry 96 Oxygen Delivery Mechanical Ventilation Fraction of Inspired Oxygen 25 25 01/17/25 13:00 01/17/25 13:00 01/17/25 13:29 Temperature Pulse Rate 95 93 96 Respiratory Rate 18 18 Blood Pressure Pulse Oximetry 95 Oxygen Delivery Mechanical Ventilation Fraction of Inspired Oxygen 25 01/17/25 13:59 01/17/25 13:59 01/17/25 14:00 Temperature Pulse Rate 96 96 98 Respiratory Rate 18 18 Blood Pressure Pulse Oximetry Oxygen Delivery Fraction of Inspired Oxygen 01/17/25 14:00 01/17/25 15:00 01/17/25 16:00 Temperature 37.6 C H 37.9 C H Pulse Rate 98 98 98 Respiratory Rate 18 18 18 Blood Pressure 135/81 128/77 Pulse Oximetry 97 95 Oxygen Delivery Fraction of Inspired Oxygen 01/17/25 16:00 01/17/25 16:00 01/17/25 16:00 Temperature Pulse Rate 98 101 H Respiratory Rate 18 Blood Pressure Pulse Oximetry 95 Oxygen Delivery Mechanical Ventilation Fraction of Inspired Oxygen 25 25 01/17/25 16:00 01/17/25 16:48 01/17/25 17:00 Temperature Pulse Rate 96 101 H 101 H Respiratory Rate 18 18 Blood Pressure Pulse Oximetry 95 Oxygen Delivery Mechanical Ventilation Fraction of Inspired Oxygen 25 01/17/25 18:00 01/17/25 18:00 01/17/25 18:00 Temperature 38.2 C H Pulse Rate 101 H 101 H 101 H Respiratory Rate 18 18 Blood Pressure 128/73 Pulse Oximetry 94 Oxygen Delivery Fraction of Inspired Oxygen 01/17/25 19:50 01/17/25 20:00 01/17/25 20:00 Temperature Pulse Rate 103 H 96 96 Respiratory Rate 18 18 Blood Pressure Pulse Oximetry 94 Oxygen Delivery Mechanical Ventilation Fraction of Inspired Oxygen 25 01/17/25 20:00 01/17/25 20:00 01/17/25 20:00 Temperature 38.4 C H Pulse Rate 96 Respiratory Rate 18 Blood Pressure 145/82 H Pulse Oximetry 96 Oxygen Delivery Mechanical Ventilation Fraction of Inspired Oxygen 25 25 01/17/25 20:00 01/17/25 20:40 01/17/25 20:40 Temperature Pulse Rate 92 100 100 Respiratory Rate 18 18 Blood Pressure Pulse Oximetry Oxygen Delivery Fraction of Inspired Oxygen 01/17/25 21:45 01/17/25 22:00 01/17/25 22:00 Temperature 38.8 C H 38.8 C H Pulse Rate 100 100 Respiratory Rate 18 18 Blood Pressure 135/80 Pulse Oximetry 93 Oxygen Delivery Fraction of Inspired Oxygen 01/17/25 22:00 01/17/25 22:00 01/17/25 22:45 Temperature 38.8 C H Pulse Rate 100 100 Respiratory Rate 18 Blood Pressure Pulse Oximetry Oxygen Delivery Fraction of Inspired Oxygen 01/17/25 23:00 01/17/25 23:00 01/17/25 23:15 Temperature Pulse Rate 98 100 99 Respiratory Rate 19 18 Blood Pressure Pulse Oximetry 93 Oxygen Delivery Mechanical Ventilation Fraction of Inspired Oxygen 01/18/25 00:00 01/18/25 00:00 01/18/25 00:00 Temperature 38.3 C H Pulse Rate 94 Respiratory Rate 18 Blood Pressure 132/79 Pulse Oximetry 92 Oxygen Delivery Mechanical Ventilation Fraction of Inspired Oxygen 01/18/25 00:00 01/18/25 00:00 01/18/25 00:00 Temperature Pulse Rate 94 94 95 Respiratory Rate 18 18 Blood Pressure Pulse Oximetry Oxygen Delivery Fraction of Inspired Oxygen 01/18/25 01:33 01/18/25 01:33 01/18/25 01:45 Temperature 38.3 C H Pulse Rate 94 94 Respiratory Rate 18 18 Blood Pressure Pulse Oximetry Oxygen Delivery Fraction of Inspired Oxygen 01/18/25 02:00 01/18/25 02:00 01/18/25 02:00 Temperature 38.5 C H Pulse Rate 97 97 97 Respiratory Rate 20 20 20 Blood Pressure 151/82 H Pulse Oximetry 93 Oxygen Delivery Fraction of Inspired Oxygen 01/18/25 02:00 01/18/25 02:03 01/18/25 02:45 Temperature 38.4 C H Pulse Rate 97 95 Respiratory Rate Blood Pressure Pulse Oximetry 98 Oxygen Delivery Mechanical Ventilation Fraction of Inspired Oxygen 01/18/25 04:00 01/18/25 04:00 01/18/25 04:00 Temperature 38.3 C H Pulse Rate 99 99 Respiratory Rate 19 19 Blood Pressure 129/78 Pulse Oximetry 92 Oxygen Delivery Fraction of Inspired Oxygen 01/18/25 04:00 01/18/25 04:00 01/18/25 04:00 Temperature Pulse Rate 99 96 Respiratory Rate 19 Blood Pressure Pulse Oximetry Oxygen Delivery Mechanical Ventilation Fraction of Inspired Oxygen 01/18/25 04:30 01/18/25 04:45 01/18/25 05:20 Temperature Pulse Rate 93 94 94 Respiratory Rate 22 H 19 Blood Pressure Pulse Oximetry 93 Oxygen Delivery Mechanical Ventilation Fraction of Inspired Oxygen 01/18/25 05:30 01/18/25 05:50 01/18/25 06:00 Temperature 37.9 C H Pulse Rate 95 94 Respiratory Rate 19 Blood Pressure 132/82 Pulse Oximetry 96 94 Oxygen Delivery Mechanical Ventilation Fraction of Inspired Oxygen 01/18/25 06:00 01/18/25 06:00 01/18/25 06:00 Temperature Pulse Rate 95 95 95 Respiratory Rate 19 19 Blood Pressure Pulse Oximetry Oxygen Delivery Fraction of Inspired Oxygen 01/18/25 06:25 01/18/25 06:26 Temperature Pulse Rate 94 94 Respiratory Rate 18 18 Blood Pressure Pulse Oximetry Oxygen Delivery Fraction of Inspired Oxygen Intake/Output Intake/Output: Intake & Output 01/15/25 01/16/25 01/17/25 01/18/25 23:59 23:59 23:59 23:59 Intake Total 1316.6 1790.9 Output Total 1200 600 Balance 116.6 1190.9 Meds/Results Medications: Active Medications Generic Name Dose Route Start Last Admin Trade Name Freq PRN Reason Stop Dose Admin Acetaminophen 650 mg 01/17/25 21:29 01/18/25 01:45 Acetaminophen Elixir 325 Mg/10.15 Ml Udc PO 650 mg Q4H PRN Administration Mild Pain (1-3) or Fever Dextrose 12.5 gm 01/17/25 03:58 Dextrose 50% 25 Gm/50 Ml Syringe IV PUSH PRN PRN Hypoglycemia Protocol Enoxaparin Sodium 40 mg 01/17/25 09:00 01/17/25 08:09 Enoxaparin 40 Mg/0.4 Ml Syringe SUB-Q 40 mg DAILY RADHA Administration Famotidine 20 mg 01/17/25 09:00 01/17/25 20:43 Famotidine 20 Mg/2 Ml Vial IV PUSH 20 mg Q12HR RADHA Administration Glucose 15 gm 01/17/25 03:58 Glucose Oral Gel 15 Gm Of Glucse In 37.5 Gm Tube PO PRN PRN Hypoglycemia Protocol Dextrose 1,000 mls @ 100 mls/hr 01/17/25 03:58 Dextrose 5% 1,000 Ml IVPB PRN PRN Hypoglycemia Protocol Propofol 100 mls @ 17.367 mls/hr 01/17/25 04:55 01/18/25 06:26 Diprivan IV CONT 40 mcg/kg/min .Q5H46M RADHA 19.85 mls/hr Administration Protocol 35 MCG/KG/MIN Piperacillin/Tazobactam/Dextrose 3.375 gm in 50 mls @ 100 mls/hr 01/18/25 07:25 Zosyn 3.375 Gm/Ns 50 Ml IVPB Q6H RADHA Multi-Ingred Cream/Lotion/Oil/Oint 1 applic 01/17/25 09:00 01/17/25 20:43 Mineral Oil/White Petrolatum Ointment EACH EYE 1 applic Q12HR RADHA Administration Potassium Chloride 40 meq 01/18/25 07:26 Potassium Chloride 20 Meq Packet (For Liquid) FEED TUBE 01/18/25 07:27 ONCE ONE Potassium Chloride 40 meq 01/18/25 12:00 Potassium Chloride 20 Meq Er Tablet PO 01/18/25 12:01 ONCE ONE Radiology Results: ITS Impressions Chest X-Ray 01/18/25 06:11 Impression: Mild central congestive change with possible minimal bibasilar pulmonary edema. Support tubes, as above. Labs Labs: Laboratory Results - last 24 hr 01/17/25 01/17/25 01/18/25 06:27 11:26 00:46 WBC RBC Hgb Hct MCV MCH MCHC RDW Plt Count MPV Puncture Site ABG pH ABG pCO2 ABG pO2 ABG PO2/FiO2 Ratio ABG HCO3 ABG O2 Saturation ABG O2 Content ABG Base Excess A-a Gradient Oxyhemoglobin Carboxyhemoglobin Methemoglobin Reduced Hemoglobin Total Hemoglobin O2 Delivery Device O2 Liters/Min Minute Volume Vent Rate Vent Mode FiO2 Tidal Volume PEEP Peak Inspir Pressure Pressure Support Sodium Potassium Chloride Carbon Dioxide Anion Gap BUN Creatinine Estim Creat Clear Calc Estimated GFR Glucose POC Capillary Glucose 80 80 Calcium Magnesium Total Bilirubin AST ALT Alkaline Phosphatase Total Protein Albumin Nasal MRSA (PCR) Not detected 01/18/25 01/18/25 01/18/25 03:57 04:56 06:31 WBC 14.6 H RBC 4.04 L Hgb 12.4 L Hct 36.4 L MCV 90.1 MCH 30.7 MCHC 34.1 RDW 12.1 Plt Count 167 MPV 10.7 H Puncture Site Left radial ABG pH 7.417 ABG pCO2 35.9 ABG pO2 72.2 L ABG PO2/FiO2 Ratio 2.89 ABG HCO3 22.6 ABG O2 Saturation 94.9 L ABG O2 Content 17.0 ABG Base Excess -1.4 A-a Gradient 63.4 Oxyhemoglobin 94.2 Carboxyhemoglobin 0.7 Methemoglobin 0.1 Reduced Hemoglobin 5.0 Total Hemoglobin 12.8 O2 Delivery Device Ventilator O2 Liters/Min Not Reportable Minute Volume Not Reportable Vent Rate 18 Vent Mode Cmv FiO2 25 Tidal Volume 450 PEEP 5 Peak Inspir Pressure Not Reportable Pressure Support Not Reportable Sodium 133 L Potassium 3.1 L Chloride 104 Carbon Dioxide 25 Anion Gap 4 BUN 12 Creatinine 0.69 L Estim Creat Clear Calc 121 Estimated GFR > 60 Glucose 115 H POC Capillary Glucose 101 Calcium 7.6 L Magnesium 1.9 Total Bilirubin 1.0 AST 57 ALT 30 Alkaline Phosphatase 50 Total Protein 6.0 L Albumin 3.0 L Nasal MRSA (PCR)
[2025-01-18] MEDS: POTASSIUM CHLORIDE 20 MEQ PACKET (FOR LIQUID) 40 MEQ FEED TUBE (08:11)
[2025-01-18] MEDS: ENOXAPARIN 40 MG/0.4 ML SYRINGE SUB-Q (08:11)
[2025-01-18] MEDS: FAMOTIDINE 20 MG/2 ML VIAL IV PUSH ×2 (08:12→20:02)
[2025-01-18] MEDS: MINERAL OIL/WHITE PETROLATUM OINTMENT 1 APPLIC EACH EYE (08:14)
[2025-01-18] MEDS: PIPERACILLN/TAZ 3.375GM/NS50ML 3.375 GM/50 ML BAG IVPB ×3 (08:32→20:02)
[2025-01-18 09:12] LABS: Procalcitonin 0.1 ng/mL
--- NOTE | 2025-01-18 10:41 | PCNFU ---
Nutrition Follow-Up Complete: Suboptimal Energy Intake as related to mechanical vent as evidenced by tube feedings. goal: Meet estimated nutritional needs. Patient is progressing towards goal. We will continue current goal. Pt current nutrition is Clear liquid. Nutrition Recommendations: advance diet as tolerated per MD orders. Last recorded weight is 81.6 kg, down from 82.7 kg on admit. Bowel Motility: No BM reported. Labs Reviewed: PO4 2.4, Glu 115, ,K 3.1. Alb 3.0, Hct 36.4, Hgb 12.4 Meds Noted: Lovenox, Zosyn Skin: WNL Additional Notes: Patient has been extubated. Diet has been advanced to clear liquids, tolerating per nursing. Recommend advancing diet as tolerated per MD orders when medically able. Will monitor weight, labs, skin, diet orders, meds every 5 days.
[2025-01-18 11:10] LABS: Glucose Point of Care 92 mg/dl (65-105)
[2025-01-18] MEDS: POTASSIUM CHLORIDE 20 MEQ ER TABLET 40 MEQ PO (11:45)
--- NOTE | 2025-01-18 11:53 | P.PNIM_ITS ---
Progress Note: A&P Assessment and Plan (1) Acute respiratory failure: Code(s): J96.00 - Acute respiratory failure, unspecified whether with hypoxia or hypercapnia Status: Acute Assessment and Plan: Secondary to methamphetamine toxicity Chest x-ray and CT scan does not show any pneumonia at the time of presentation ABG and chest x-ray reviewed reviewed Plan for sedation holiday and weaning trial today (2) Drug overdose: Qualifiers: Encounter type: initial encounter Injury intent: undetermined intent Qualified Code(s): T50.904A - Poisoning by unspecified drugs, medicaments and biological substances, undetermined, initial encounter Code(s): T50.901A - Poisoning by unspecified drugs, medicaments and biological substances, accidental (unintentional), initial encounter Status: Inactive Assessment and Plan: UDS positive for amphetamine and cannabinoids. Head CT negative. Currently sedated Plan for sedation holiday and weaning trial today (3) Amphetamine abuse: Code(s): F15.10 - Other stimulant abuse, uncomplicated Status: Inactive Assessment and Plan: Currently sedated with propofol and Versed (4) Rhabdomyolysis: Code(s): M62.82 - Rhabdomyolysis Status: Acute Assessment and Plan: On IV fluids. Monitor CK level (5) Lactic acidosis: Code(s): E87.20 - Acidosis, unspecified Status: Acute Assessment and Plan: No evidence of sepsis at this time. Not on any antibiotics Lactic acidosis has resolved with fluids Monitor (6) Sinus bradycardia: Code(s): R00.1 - Bradycardia, unspecified Status: Acute Assessment and Plan: Likely secondary to propofol. Off dopamine. Now has resolved. Monitor (7) Electrolyte abnormality: Code(s): E87.8 - Other disorders of electrolyte and fluid balance, not elsewhere classified Status: Acute Assessment and Plan: Replace low potassium (8) Fever: Code(s): R50.9 - Fever, unspecified Status: Acute Assessment and Plan: Febrile overnight. With increased WBC count Imaging at the time of presentation was negative and WBC was normal ? Aspiration was atelectasis Check sputum and blood culture Repeat procalcitonin level Empiric Zosyn Subjective Date/time seen: 01/18/25 11:53 Interval history: Patient is extubated. Currently patient is currently on nasal cannula 2 L saturating around 94%. Patient was examined at the bedside along with his mother. As per mother patient currently not working more than a year. 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 Later patient was abusing drugs including methamphetamine and fentanyl. As per mother she got a call from the hospital and and does not know the events happened in [facility]. As per nursing patient was intubated in [facility] due to drug overdose. UDS positive for amphetamine and cannabinoids. Patient is started on Zosyn due to possible aspiration pneumonia. Review of Systems Review of Systems: ROS unobtainable: Yes unobtainable due to endotracheal tube, unobtainable due to medical condition and unobtainable due to mental status Exam Narrative: General: Pt is sedated, intubated and on mechanical ventilation Lungs/Chest: Trachea central Coarse BS B/L, No crackles or wheezing. Cardiac: RRR. Normal S1 S2. No murmurs Circulation: Pedal pulses are intact and symmetrical. Abdomen: Decreased bowel sounds. Obese. Soft. NT. ND. Extremities: No clubbing, cyanosis or edema. Warm : Srivastava in place Neurologic: Unable to assess due to sedation. PERRL Const: Other: Sedated HENMT: Mouth: Yes moist mucous membranes Eyes: Pupils: Equal, round and reactive pupils present Other: Pupils 3 mm equally Neck: Neck: supple Resp: Other: Mechanical breath sounds Cardio: Rate: regular rate Rhythm: regular rhythm Neuro: Cranial nerves: Yes Equal, round and reactive pupils present Extrem: General: no edema Objective Data Vital Signs Vital Signs: Vital Signs - 24 hr 01/17/25 12:00 01/17/25 12:00 01/17/25 12:00 Temperature 98.5 F Pulse Rate 92 94 94 Respiratory Rate 18 18 Blood Pressure 116/72 Pulse Oximetry 96 96 Oxygen Delivery Mechanical Ventilation Oxygen Flow Rate Fraction of Inspired Oxygen 01/17/25 12:00 01/17/25 13:00 01/17/25 13:00 Temperature Pulse Rate 95 93 Respiratory Rate 18 18 Blood Pressure Pulse Oximetry Oxygen Delivery Oxygen Flow Rate Fraction of Inspired Oxygen 01/17/25 13:29 01/17/25 13:59 01/17/25 13:59 Temperature Pulse Rate 96 96 96 Respiratory Rate 18 18 Blood Pressure Pulse Oximetry 95 Oxygen Delivery Mechanical Ventilation Oxygen Flow Rate Fraction of Inspired Oxygen 01/17/25 14:00 01/17/25 14:00 01/17/25 15:00 Temperature 99.7 F H Pulse Rate 98 98 98 Respiratory Rate 18 18 Blood Pressure 135/81 Pulse Oximetry 97 Oxygen Delivery Oxygen Flow Rate Fraction of Inspired Oxygen 01/17/25 16:00 01/17/25 16:00 01/17/25 16:00 Temperature 100.3 F H Pulse Rate 98 98 101 H Respiratory Rate 18 18 Blood Pressure 128/77 Pulse Oximetry 95 95 Oxygen Delivery Mechanical Ventilation Oxygen Flow Rate Fraction of Inspired Oxygen 25 01/17/25 16:00 01/17/25 16:00 01/17/25 16:48 Temperature Pulse Rate 96 101 H Respiratory Rate 18 Blood Pressure Pulse Oximetry 95 Oxygen Delivery Mechanical Ventilation Oxygen Flow Rate Fraction of Inspired Oxygen 25 25 01/17/25 17:00 01/17/25 18:00 01/17/25 18:00 Temperature 100.8 F H Pulse Rate 101 H 101 H 101 H Respiratory Rate 18 18 Blood Pressure 128/73 Pulse Oximetry 94 Oxygen Delivery Oxygen Flow Rate Fraction of Inspired Oxygen 01/17/25 18:00 01/17/25 19:50 01/17/25 20:00 Temperature Pulse Rate 101 H 103 H 96 Respiratory Rate 18 18 Blood Pressure Pulse Oximetry 94 Oxygen Delivery Mechanical Ventilation Oxygen Flow Rate Fraction of Inspired Oxygen 25 01/17/25 20:00 01/17/25 20:00 01/17/25 20:00 Temperature Pulse Rate 96 Respiratory Rate 18 Blood Pressure Pulse Oximetry Oxygen Delivery Mechanical Ventilation Oxygen Flow Rate Fraction of Inspired Oxygen 25 01/17/25 20:00 01/17/25 20:00 01/17/25 20:40 Temperature 101.2 F H Pulse Rate 96 92 100 Respiratory Rate 18 18 Blood Pressure 145/82 H Pulse Oximetry 96 Oxygen Delivery Oxygen Flow Rate Fraction of Inspired Oxygen 01/17/25 20:40 01/17/25 21:45 01/17/25 22:00 Temperature 101.9 F H 102 F H Pulse Rate 100 100 Respiratory Rate 18 18 Blood Pressure 135/80 Pulse Oximetry 93 Oxygen Delivery Oxygen Flow Rate Fraction of Inspired Oxygen 01/17/25 22:00 01/17/25 22:00 01/17/25 22:00 Temperature Pulse Rate 100 100 100 Respiratory Rate 18 18 Blood Pressure Pulse Oximetry Oxygen Delivery Oxygen Flow Rate Fraction of Inspired Oxygen 01/17/25 22:45 01/17/25 23:00 01/17/25 23:00 Temperature 101.9 F H Pulse Rate 98 100 Respiratory Rate 19 Blood Pressure Pulse Oximetry 93 Oxygen Delivery Mechanical Ventilation Oxygen Flow Rate Fraction of Inspired Oxygen 01/17/25 23:15 01/18/25 00:00 01/18/25 00:00 Temperature Pulse Rate 99 Respiratory Rate 18 Blood Pressure Pulse Oximetry Oxygen Delivery Mechanical Ventilation Oxygen Flow Rate Fraction of Inspired Oxygen 01/18/25 00:00 01/18/25 00:00 01/18/25 00:00 Temperature 100.9 F H Pulse Rate 94 94 94 Respiratory Rate 18 18 18 Blood Pressure 132/79 Pulse Oximetry 92 Oxygen Delivery Oxygen Flow Rate Fraction of Inspired Oxygen 01/18/25 00:00 01/18/25 01:33 01/18/25 01:33 Temperature Pulse Rate 95 94 94 Respiratory Rate 18 18 Blood Pressure Pulse Oximetry Oxygen Delivery Oxygen Flow Rate Fraction of Inspired Oxygen 01/18/25 01:45 01/18/25 02:00 01/18/25 02:00 Temperature 101.0 F H Pulse Rate 97 97 Respiratory Rate 20 20 Blood Pressure Pulse Oximetry Oxygen Delivery Oxygen Flow Rate Fraction of Inspired Oxygen 01/18/25 02:00 01/18/25 02:00 01/18/25 02:03 Temperature 101.3 F H Pulse Rate 97 97 95 Respiratory Rate 20 Blood Pressure 151/82 H Pulse Oximetry 93 98 Oxygen Delivery Mechanical Ventilation Oxygen Flow Rate Fraction of Inspired Oxygen 01/18/25 02:45 01/18/25 04:00 01/18/25 04:00 Temperature 101.2 F H 100.9 F H Pulse Rate 99 Respiratory Rate 19 Blood Pressure 129/78 Pulse Oximetry 92 Oxygen Delivery Oxygen Flow Rate Fraction of Inspired Oxygen 01/18/25 04:00 01/18/25 04:00 01/18/25 04:00 Temperature Pulse Rate 99 99 Respiratory Rate 19 19 Blood Pressure Pulse Oximetry Oxygen Delivery Mechanical Ventilation Oxygen Flow Rate Fraction of Inspired Oxygen 01/18/25 04:00 01/18/25 04:30 01/18/25 04:45 Temperature Pulse Rate 96 93 94 Respiratory Rate 22 H 19 Blood Pressure Pulse Oximetry Oxygen Delivery Oxygen Flow Rate Fraction of Inspired Oxygen 01/18/25 05:20 01/18/25 05:30 01/18/25 05:50 Temperature Pulse Rate 94 95 Respiratory Rate Blood Pressure Pulse Oximetry 93 96 Oxygen Delivery Mechanical Ventilation Mechanical Ventilation Oxygen Flow Rate Fraction of Inspired Oxygen 25 30 30 01/18/25 06:00 01/18/25 06:00 01/18/25 06:00 Temperature 100.2 F H Pulse Rate 94 95 95 Respiratory Rate 19 19 19 Blood Pressure 132/82 Pulse Oximetry 94 Oxygen Delivery Oxygen Flow Rate Fraction of Inspired Oxygen 01/18/25 06:00 01/18/25 06:25 01/18/25 06:26 Temperature Pulse Rate 95 94 94 Respiratory Rate 18 18 Blood Pressure Pulse Oximetry Oxygen Delivery Oxygen Flow Rate Fraction of Inspired Oxygen 01/18/25 07:45 01/18/25 07:52 01/18/25 08:00 Temperature 99.9 F H Pulse Rate 92 92 Respiratory Rate 18 18 Blood Pressure 134/81 Pulse Oximetry 94 Oxygen Delivery Mechanical Ventilation Oxygen Flow Rate Fraction of Inspired Oxygen 30 01/18/25 08:00 01/18/25 08:00 01/18/25 08:00 Temperature 100.0 F H Pulse Rate 97 91 Respiratory Rate 19 18 Blood Pressure 131/81 Pulse Oximetry 96 Oxygen Delivery Oxygen Flow Rate Fraction of Inspired Oxygen 30 01/18/25 08:00 01/18/25 08:11 01/18/25 08:29 Temperature 100.0 F H Pulse Rate 94 91 Respiratory Rate 19 Blood Pressure Pulse Oximetry Oxygen Delivery Oxygen Flow Rate Fraction of Inspired Oxygen 01/18/25 08:35 01/18/25 08:39 01/18/25 08:40 Temperature Pulse Rate 91 89 88 Respiratory Rate 21 H 19 Blood Pressure Pulse Oximetry 96 Oxygen Delivery Mechanical Ventilation Oxygen Flow Rate Fraction of Inspired Oxygen 30 01/18/25 08:45 01/18/25 09:00 01/18/25 09:32 Temperature 99.6 F Pulse Rate 84 Respiratory Rate 22 H Blood Pressure Pulse Oximetry 95 Oxygen Delivery Nasal Cannula Oxygen Flow Rate 2 Fraction of Inspired Oxygen 01/18/25 10:00 01/18/25 10:00 Temperature 99.7 F H Pulse Rate 102 H 87 Respiratory Rate 19 Blood Pressure 112/79 Pulse Oximetry 94 Oxygen Delivery Oxygen Flow Rate Fraction of Inspired Oxygen Intake/Output Intake/Output: Intake & Output 01/15/25 01/16/25 01/17/25 01/18/25 23:59 23:59 23:59 23:59 Intake Total 1316.6 2224.5 Output Total 1200 600 Balance 116.6 1624.5 Meds/Results Medications: Active Medications Generic Name Dose Route Start Last Admin Trade Name Freq PRN Reason Stop Dose Admin Acetaminophen 650 mg 01/17/25 21:29 01/18/25 08:11 Acetaminophen Elixir 325 Mg/10.15 Ml Udc PO 650 mg Q4H PRN Administration Mild Pain (1-3) or Fever Dextrose 12.5 gm 01/17/25 03:58 Dextrose 50% 25 Gm/50 Ml Syringe IV PUSH PRN PRN Hypoglycemia Protocol Enoxaparin Sodium 40 mg 01/17/25 09:00 01/18/25 08:11 Enoxaparin 40 Mg/0.4 Ml Syringe SUB-Q 40 mg DAILY RADHA Administration Famotidine 20 mg 01/17/25 09:00 01/18/25 08:12 Famotidine 20 Mg/2 Ml Vial IV PUSH 20 mg Q12HR RADHA Administration Glucose 15 gm 01/17/25 03:58 Glucose Oral Gel 15 Gm Of Glucse In 37.5 Gm Tube PO PRN PRN Hypoglycemia Protocol Dextrose 1,000 mls @ 100 mls/hr 01/17/25 03:58 Dextrose 5% 1,000 Ml IVPB PRN PRN Hypoglycemia Protocol Piperacillin/Tazobactam/Dextrose 3.375 gm in 50 mls @ 100 mls/hr 01/18/25 08:00 01/18/25 09:32 Zosyn 3.375 Gm/Ns 50 Ml IVPB Infused Q6H RADHA Infusion Multi-Ingred Cream/Lotion/Oil/Oint 1 applic 01/17/25 09:00 01/18/25 08:14 Mineral Oil/White Petrolatum Ointment EACH EYE 1 applic Q12HR RADHA Administration Potassium Chloride 40 meq 01/18/25 12:00 01/18/25 11:45 Potassium Chloride 20 Meq Er Tablet PO 01/18/25 12:01 40 meq ONCE ONE Administration Radiology Results: ITS Impressions Chest X-Ray 01/18/25 06:11 Impression: Mild central congestive change with possible minimal bibasilar pulmonary edema. Support tubes, as above. Labs Labs: Laboratory Results - last 24 hr 01/18/25 01/18/25 01/18/25 00:46 03:57 04:56 WBC 14.6 H RBC 4.04 L Hgb 12.4 L Hct 36.4 L MCV 90.1 MCH 30.7 MCHC 34.1 RDW 12.1 Plt Count 167 MPV 10.7 H Puncture Site Left radial ABG pH 7.417 ABG pCO2 35.9 ABG pO2 72.2 L ABG PO2/FiO2 Ratio 2.89 ABG HCO3 22.6 ABG O2 Saturation 94.9 L ABG O2 Content 17.0 ABG Base Excess -1.4 A-a Gradient 63.4 Oxyhemoglobin 94.2 Carboxyhemoglobin 0.7 Methemoglobin 0.1 Reduced Hemoglobin 5.0 Total Hemoglobin 12.8 O2 Delivery Device Ventilator O2 Liters/Min Not Reportable Minute Volume Not Reportable Vent Rate 18 Vent Mode Cmv FiO2 25 Tidal Volume 450 PEEP 5 Peak Inspir Pressure Not Reportable Pressure Support Not Reportable Sodium 133 L Potassium 3.1 L Chloride 104 Carbon Dioxide 25 Anion Gap 4 BUN 12 Creatinine 0.69 L Estim Creat Clear Calc 121 Estimated GFR > 60 Glucose 115 H POC Capillary Glucose 80 Calcium 7.6 L Magnesium 1.9 Total Bilirubin 1.0 AST 57 ALT 30 Alkaline Phosphatase 50 Total Protein 6.0 L Albumin 3.0 L Procalcitonin 01/18/25 01/18/25 01/18/25 06:31 07:55 11:08 WBC RBC Hgb Hct MCV MCH MCHC RDW Plt Count MPV Puncture Site ABG pH ABG pCO2 ABG pO2 ABG PO2/FiO2 Ratio ABG HCO3 ABG O2 Saturation ABG O2 Content ABG Base Excess A-a Gradient Oxyhemoglobin Carboxyhemoglobin Methemoglobin Reduced Hemoglobin Total Hemoglobin O2 Delivery Device O2 Liters/Min Minute Volume Vent Rate Vent Mode FiO2 Tidal Volume PEEP Peak Inspir Pressure Pressure Support Sodium Potassium Chloride Carbon Dioxide Anion Gap BUN Creatinine Estim Creat Clear Calc Estimated GFR Glucose POC Capillary Glucose 101 92 Calcium Magnesium Total Bilirubin AST ALT Alkaline Phosphatase Total Protein Albumin Procalcitonin 0.1 Hospitalist MIPS Advance Care Plan I have confirmed that the patient's Advanced Care Plan is present, code status is documented, or surrogate decision maker is listed in patient medical record.: Yes Medication Reconciliation I have utilized all available resources to obtain, update and review the patients current medications (includes all prescriptions, OTC, herbals, cannabis, and nutritional supplements).: Yes
[2025-01-18] MEDS: NICOTINE (*PBKC) 14 MG PATCH 1 PATCH TRANSDERM (15:25)
[2025-01-19] VITALS: BP 102/67; PULSE 85; PULSE 86; RESP 16; TEMP 37.2; O2SAT 96
[2025-01-19 02:00] VITALS: BP 115/94; PULSE 81; PULSE 90; RESP 16; TEMP 37.3; O2SAT 96
[2025-01-19] MEDS: PIPERACILLN/TAZ 3.375GM/NS50ML 3.375 GM/50 ML BAG IVPB (02:02)
[2025-01-19 04:00] VITALS: BP 123/70; PULSE 82; PULSE 93; RESP 22; TEMP 37.2; O2SAT 95; O2SAT 97
[2025-01-19] MEDS: ACETAMINOPHEN ELIXIR 325 MG/10.15 ML UDC 650 MG PO (04:17)
[2025-01-19 04:22] LABS: Hemoglobin 11.6 g/dL (14.0-18.0); Mean Corpuscular HGB Conc 33.1 g/dl (32-36); Mean Corpuscular Volume 90.4 fl (80-100); Mean Platelet Volume 11.4 fl (7.4-10.4); Platelet Count Result 180 k/mm3 (150-375); Red Blood Count 3.87 M/mm3 (4.6-6.20); Red Cell Distribution Width 12.2 % (11.5-14.5); White Blood Count 12.9 K/mm3 (4.5-10.0)
[2025-01-19 04:31] LABS: Alanine Aminotransferase 45 U/L (6-50); Albumin Level 3.2 g/dL (3.5-5.1); Alkaline Phosphatase 56 U/L (38-126); Anion Gap 6 mmol/L (4-12); Aspartate Amino Transferase 62 U/L (17-59); Bilirubin,Total 0.9 mg/dL (0.2-1.3); Blood Urea Nitrogen 7 mg/dL (9-20); Calcium 7.8 mg/dL (8.4-10.2); Carbon Dioxide 26 mmol/L (22-30); Chloride 105 mmol/L (98-107); Estimated CRCL calculation 125 ml/min; Estimated Glomerular Filt Rate > 60; Glucose 138 mg/dL (65-110); Magnesium 1.9 mg/dL (1.6-2.3); Potassium 3.4 mmol/L (3.4-5.0); Sodium 137 mmol/L (137-145)
[2025-01-19 06:00] VITALS: BP 132/88; PULSE 88; PULSE 89; PULSE 90; RESP 16; RESP 20; TEMP 37.3; O2SAT 96
--- NOTE | 2025-01-19 06:20 | P.PNCROSS_ITS ---
Event Note Event Note Event Note: Per nursing report patient was alert oriented x4 and was on room air. The paul ent was aware of the risks and decided to leave the hospital against medical advice. I did not the opportunity to evaluate the patient prior to his departure.
--- NOTE | 2025-01-19 06:33 | PC.NURSE ---
Patient requesting to go AMA. Srivastava removed and both IV's removed. Dr. Rahman notified. Dr. Donald notified. Patient is alert and oriented. Patient called mother to come pick him up. He signed the AMA paperwork and went downstairs to wait for his mother to come.
[2025-01-19 08:03] LABS: Creatine Kinase 2152 U/L (55-170)
== END 2025-01-19 06:20 | disposition left against medical advice (07) | DRG 812 ==
PROVIDERS: Internal Medicine; Admitting Provider General Practice; PCP Internal Medicine; Visit Provider Internal Medicine
DX: T43.621A Poisoning by amphetamines, accidental (unintentional), initial encounter (principal); J96.00 Acute respiratory failure, unspecified whether with hypoxia or hypercapnia; M62.82 Rhabdomyolysis; E87.20 Acidosis, unspecified; F15.10 Other stimulant abuse, uncomplicated; R00.1 Bradycardia, unspecified
CPT/HCPCS: 36415; 36600; 71045; 80053; 82375; 82550; 82805; 82948; 83050; 83735; 84100; 84145; 84478; 85018; 85025; 85027; 87040; 87070; 87181; 87205; 87641; 94002; 94003; A9270; J1650; J2250; J2543; J2704; J3475; J7030; J7120